=== PATIENT | female | born 1945 | race Caucasian/White ===

== ENCOUNTER 2021-01-27 13:52 | Emergency (ER) | payer MEDICARE, OTHER ==
--- NOTE | 2021-01-27 15:27 | EDM.PDOC ---
ED HPI GENERAL MEDICAL PROBLEM - General Chief Complaint: General Stated Complaint: MEDICAL Time Seen by Provider: 01/27/21 14:15 Source of Information: Reports: Patient, EMS History Limitations: Reports: No Limitations - History of Present Illness INITIAL COMMENTS - FREE TEXT/NARRATIVE: 75-year-old female who was just discharged from [facility] yesterday with COPD exacerbation and hypoxia was found to have a small PE and some electrolyte abnormalities. It was felt compounded by her smoking and persistent alcohol intake. She was discharged angry because she felt like they "didn't do anything". Today her leg gave out which she has done many times in the past, so she called the ambulance and wanted something done. Vitals were stable in route. Onset: Unknown/Unsure Duration: Chronic (All her symptoms are chronic) Location: Reports: Other (Her main concern is intermittent weakness of the right leg) Associated Symptoms: Reports: Malaise, Shortness of Breath, Weakness. Denies: Confusion, Chest Pain, Cough, Fever/Chills, Headaches - Related Data Allergies Allergy/AdvReac Type Severity Reaction Status Date / Time No Known Allergies Allergy Verified 01/27/21 13:57 Home Meds: Home Meds Apixaban [Eliquis] 10 mg PO BID 01/27/21 [History] Aspirin [Ecotrin EC] 81 mg PO DAILY 01/27/21 [History] Furosemide 20 mg PO DAILY 01/27/21 [History] Magnesium Oxide 400 mg PO DAILY 01/27/21 [History] Multivitamin 1 tab PO DAILY 01/27/21 [History] Omeprazole 40 mg PO DAILY 01/27/21 [History] Spironolactone [Aldactone] 25 mg PO DAILY 01/27/21 [History] Sucralfate [Carafate] 1 gm PO BID 01/27/21 [History] Past Medical History HEENT History: Reports: Cataract, Impaired Vision Cardiovascular History: Reports: Afib, Heart Failure, Other (See Below) Other Cardiovascular History: afib with RVR Respiratory History: Reports: COPD, PE, SOB 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: Reports: 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: Musculoskeletal History: Reports: Back Pain, Chronic, Other (See Below) Other Musculoskeletal History: shoulder pain chronic Other Neuro History: michelet bradley Psychiatric History: Reports: Addiction - Past Surgical History HEENT Surgical History: Reports: LASIK, Tonsillectomy Other Cardiovascular Surgeries/Procedures: hypokalemia, Hypomagnesium Female Surgical History: Reports: Tubal Ligation Social & Family History - Tobacco Use Tobacco Use Status *Q: Current Every Day Tobacco User Years of Tobacco use: 63 Packs/Tins Daily: 1 - Caffeine Use Caffeine Use: Reports: Coffee - Alcohol Use Days Per Week of Alcohol Use: 7 Number of Drinks Per Day: 3 Total Drinks Per Week: 21 - Recreational Drug Use Recreational Drug Use: No Other Recreational Drug Type: uses cbd oil ED ROS GENERAL - Review of Systems Review Of Systems: See Below Constitutional: Reports: Malaise. Denies: Fever, Chills HEENT: Denies: Throat Pain, Vision Change Respiratory: Reports: Shortness of Breath (Chronic shortness of breath, improved since being in the hospital) Cardiovascular: Reports: Dyspnea on Exertion, Palpitations (Intermittent palpitations). Denies: Chest Pain GI/Abdominal: Reports: Other (Chronic mild diffuse abdominal discomfort) Musculoskeletal: Reports: Other (Significant upper back and right shoulder pain, lower back pain intermittent, lower extremity pains and cramps) Skin: Reports: Bruising (Significant bruising on both her arms from recent IV starts and lab draws) Neurological: Reports: Difficulty Walking (Right leg gives out), Weakness Psychiatric: Reports: No Symptoms ED EXAM, GENERAL - Physical Exam Exam: See Below Exam Limited By: No Limitations General Appearance: Alert, No Apparent Distress Eye Exam: Bilateral Eye: Normal Inspection (No jaundice) Head: Atraumatic Neck: Supple, Non-Tender Respiratory/Chest: Lungs Clear (Lungs are clear but breath sounds are markedly decreased diffusely) Cardiovascular: Systolic Murmur (2/6 systolic ejection murmur), Irregularly Irregular GI/Abdominal: Normal Bowel Sounds, Soft, Tender (Reacts with some discomfort to palpation across the lower abdomen, no focal rebound or guarding) Extremities: Other (1+ symmetric ankle edema is present) Neurological: Alert, Oriented, Other (Cannot hold either leg up against gravity, her effort however is questionable) Skin Exam: Warm, Dry, Other (Significant bruising of both upper extremities) Course - Vital Signs Last Recorded V/S: Last Vital Signs Temp 97.5 F 01/27/21 14:03 Pulse 74 01/27/21 15:06 Resp 20 01/27/21 14:03 BP 113/62 01/27/21 15:06 Pulse Ox 95 01/27/21 15:06 - Orders/Labs/Meds Labs: Laboratory Tests 01/27/21 01/27/21 01/27/21 Range/Units 15:06 15:06 15:06 WBC 6.9 (4.5-11.0) K/uL RBC 3.43 (3.30-5.50) M/uL Hgb 13.8 (12.0-15.0) g/dL Hct 39.3 (36.0-48.0) % MCV 115 H (80-98) fL MCH 40 H (27-31) pg MCHC 35 (32-36) % Plt Count 258 (150-400) K/uL Neut % (Auto) 74 H (36-66) % Lymph % (Auto) 12 L (24-44) % [place] % (Auto) 12 H (2-6) % Eos % (Auto) 0 L (2-4) % Baso % (Auto) 2 H (0-1) % Sodium 141 (140-148) mmol/L Potassium 6.1 H* (3.6-5.2) mmol/L Chloride 103 (100-108) mmol/L Carbon Dioxide 29 (21-32) mmol/L Anion Gap 15.1 H (5.0-14.0) mmol/L BUN 11 (7-18) mg/dL Creatinine 0.6 (0.6-1.0) mg/dL Est Cr Clr Drug Dosing 69.96 mL/min Estimated GFR (MDRD) > 60 (>60) Glucose 104 (74-106) mg/dL Calcium 8.9 (8.5-10.1) mg/dL Ethyl Alcohol < 3 mg/dL - Re-Assessments/Exams Free Text/Narrative Re-Assessment/Exam: 01/27/21 15:26 Records were obtained from [place], and despite the patient claiming that they did nothing for her, an extensive work-up was done, COPD was stabilized, electrolyte abnormalities stabilized, and she was started on anticoagulation for a diagnosed PE. When she got home she started smoking again, possibly started drinking again. CBC, BMP and EtOH were obtained. Patient was stable. 01/27/21 16:51 EtOH was 0, vitals remained stable potassium came back 6.1 but is likely hemolyzed because it was normal yesterday and they had difficulty getting her blood from her bruised arms. Cardiac monitoring is normal. After labs returned, patient did not want to be placed back in the hospital and when I went through all her chronic illnesses and reasons for intermittent leg weakness as well as her intermittent hypoxia, COPD, and recent hospitalization she just wanted to change doctors. We got her an appointment next week in [place] with an essential physician and her potassium can be rechecked at that time. It is very important that she take her medications as prescribed including her anticoagulant. Departure - Departure Time of Disposition: 16:48 Disposition: Home, Self-Care 01 Clinical Impression: Weakness, Hyperkalemia COPD (chronic obstructive pulmonary disease) Qualifiers: COPD type: unspecified COPD Qualified Code(s): J44.9 - Chronic obstructive pulmonary disease, unspecified - Discharge Information Instructions: Chronic Obstructive Pulmonary Disease Exacerbation, [id number] Referrals: PCP,None [Primary Care Provider] - 02/03/21 2:00 pm (Dr Sharp TuesdayFebruary 03 at 2pm at the [facility] in [place]. ) Forms: ED Department Discharge Care Plan Goals: Is very important that you take your medications as prescribed, try to avoid smoking if possible and avoid alcohol. Increase activity as tolerated and recheck later this week if symptoms are persisting or you develop other concerns. Sepsis Event Note (ED) - Evaluation Sepsis Screening Result: No Definite Risk
== END 2021-01-27 17:22 | disposition home or self-care (01) ==
LOC: JP.ED 13:52
DX: J44.9 Chronic obstructive pulmonary disease, unspecified (principal); E87.5 Hyperkalemia; I48.91 Unspecified atrial fibrillation; I50.9 Heart failure, unspecified; K21.9 Gastro-esophageal reflux disease without esophagitis; Z72.0 Tobacco use; Z79.01 Long term (current) use of anticoagulants; Z79.82 Long term (current) use of aspirin; Z86.711 Personal history of pulmonary embolism
CPT/HCPCS: 36415; 80048; 80307; 85025; 99285

== ENCOUNTER 2021-01-31 11:24 | Emergency (ER) | payer MEDICARE, OTHER ==
[2021-01-31] MEDS ORDERED: Bacitracin Oint 1 GM U/D Packet TOP ONE (11:35)
--- NOTE | 2021-01-31 11:42 | EDM.PDOC ---
ED HPI GENERAL MEDICAL PROBLEM - General Chief Complaint: Laceration Stated Complaint: MEDICAL Time Seen by Provider: 01/31/21 11:25 Source of Information: Reports: Patient, EMS, Old Records History Limitations: Reports: No Limitations - History of Present Illness INITIAL COMMENTS - FREE TEXT/NARRATIVE: 75 yo female fell at home incurring some skin tears to her L forearm. She is on Eliquis. She didn't hit her head. 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 Denies any persisting dizziness. No nausea or vomiting. Does not believe that she has medications for vertigo at home. Says she is UTD on her tetanus. 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(s), Other (see below) (none) - Related Data Allergies Allergy/AdvReac Type Severity Reaction Status Date / Time No Known Allergies Allergy Verified 01/31/21 11:31 Home Meds: Home Meds Apixaban [Eliquis] 5 mg PO BID 01/27/21 [History] Aspirin [Ecotrin EC] 81 mg PO DAILY 01/27/21 [History] Furosemide 20 mg PO DAILY 01/27/21 [History] Magnesium Oxide 400 mg PO DAILY 01/27/21 [History] Omeprazole 40 mg PO DAILY 01/27/21 [History] Spironolactone [Aldactone] 25 mg PO DAILY 01/27/21 [History] Sucralfate [Carafate] 1 gm PO BID 01/27/21 [History] Past Medical History HEENT History: Reports: Cataract, Impaired Vision Cardiovascular History: Reports: Afib, Heart Failure, Other (See Below) Other Cardiovascular History: afib with RVR Respiratory History: Reports: COPD, PE, SOB 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: Reports: 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: Musculoskeletal History: Reports: Back Pain, Chronic, Other (See Below) Other Musculoskeletal History: shoulder pain chronic Other Neuro History: michelet bradley Psychiatric History: Reports: Addiction - Past Surgical History HEENT Surgical History: Reports: LASIK, Tonsillectomy Other Cardiovascular Surgeries/Procedures: hypokalemia, Hypomagnesium Female Surgical History: Reports: Tubal Ligation Social & Family History - Caffeine Use Caffeine Use: Reports: Coffee ED ROS GENERAL - Review of Systems Review Of Systems: See Below Constitutional: Reports: No Symptoms HEENT: Reports: No Symptoms Respiratory: Reports: Cough (chronic) Cardiovascular: Reports: No Symptoms GI/Abdominal: Reports: No Symptoms : Reports: No Symptoms Musculoskeletal: Reports: No Symptoms Skin: Reports: Bruising (diffusely, old), Wound (skin tears of L forearm/arm) Neurological: Reports: No Symptoms ED EXAM, SKIN/RASH Exam: See Below Exam Limited By: No Limitations General Appearance: Alert, WD/WN, No Apparent Distress Eye Exam: Bilateral Eye: Normal Inspection Ears: Normal External Exam, Normal Canal, Hearing Grossly Normal Nose: Normal Inspection, No Blood Throat/Mouth: Normal Inspection, Normal Lips, Normal Oropharynx, Normal Voice, No Airway Compromise Head: Atraumatic, Normocephalic Neck: Normal Inspection Cardiovascular: Regular Rate, Rhythm, No Edema GI/Abdominal: Normal Bowel Sounds, Soft, Non-Tender, No Distention Back Exam: Normal Inspection Extremities: Normal Inspection, Normal Range of Motion, Non-Tender, No Pedal Edema Neurological: Alert, Oriented, CN II-XII Intact, Normal Cognition, No Motor/Sensory Deficits Psychiatric: Normal Affect, Normal Mood Skin: Warm, Dry, No Rash, Ecchymosis (diffusely), Wound/Incision (skin tears) Location, Skin: Upper Extremity, Left Characteristics: No: Erythematous Associated features: Tenderness. No: Warmth, Induration, Lymphangitis Course - Vital Signs Last Recorded V/S: Last Vital Signs Temp 35.7 C L 01/31/21 11:39 Pulse 95 01/31/21 11:39 Resp 14 01/31/21 11:39 BP 108/61 01/31/21 11:39 Pulse Ox 96 01/31/21 11:39 Orthostatic Blood Pressure [ 119/68 Standing] Orthostatic Blood Pressure [ 128/77 Sitting] Orthostatic Blood Pressure [ 132/73 Supine] - Orders/Labs/Meds Orders: Active Orders 24 hr Category Date Time Status Cardiac Monitoring [RC] .As Directed Care 01/31/21 11:35 Active Orthostatic Vital Signs [RC] ASDIRECTED Care 01/31/21 11:35 Active Meds: Medications Discontinued Medications Generic Name Dose Route Start Last Admin Trade Name Luisa PRN Reason Stop Dose Admin Bacitracin 2 dose 01/31/21 11:35 01/31/21 12:28 Bacitracin Oint 1 Gm U/D Packet TOP 01/31/21 11:36 2 dose ONETIME ONE Administration - Re-Assessments/Exams Free Text/Narrative Re-Assessment/Exam: 01/31/21 12:33 Did OK ambulating with a walker here in the ER, her friend who is here for her says her performance with the walker if about normal for her. Departure - Departure Time of Disposition: 12:35 Disposition: Home, Self-Care 01 Condition: Fair Clinical Impression: Skin tear of left upper extremity, Fall in elderly patient - Discharge Information *PRESCRIPTION DRUG MONITORING PROGRAM REVIEWED*: Not Applicable *COPY OF PRESCRIPTION DRUG MONITORING REPORT IN PATIENT MALIKA: Not Applicable Instructions: Fall Prevention in the Home, Adult, [id number] Referrals: PCP,None [Primary Care Provider] - Forms: ED Department Discharge Additional Instructions: Continue your usual mediations. Use care when ambulating with your walker to prevent falls. Follow up with your provider in the clinic next week, call for an appointment. Sepsis Event Note (ED) - Focused Exam Vital Signs: Vital Signs Temp Pulse Resp BP Pulse Ox 01/31/21 11:39 35.7 C L 95 14 108/61 96 01/31/21 11:28 96 01/31/21 11:27 35.7 C L 95 14 108/61 85 L - My Orders Last 24 Hours: My Active Orders 01/31/21 11:35 Cardiac Monitoring [RC] .As Directed Orthostatic Vital Signs [RC] ASDIRECTED - Assessment/Plan Last 24 Hours: My Active Orders 01/31/21 11:35 Cardiac Monitoring [RC] .As Directed Orthostatic Vital Signs [RC] ASDIRECTED
== END 2021-01-31 12:47 | disposition home or self-care (01) ==
LOC: JP.ED 11:24
DX: S51.812A Laceration without foreign body of left forearm, initial encounter (principal); I50.9 Heart failure, unspecified; J44.9 Chronic obstructive pulmonary disease, unspecified; K21.9 Gastro-esophageal reflux disease without esophagitis; I48.91 Unspecified atrial fibrillation; Z79.899 Other long term (current) drug therapy; Z79.01 Long term (current) use of anticoagulants; Z86.711 Personal history of pulmonary embolism; W19.XXXA Unspecified fall, initial encounter; Y92.009 Unspecified place in unspecified non-institutional (private) residence as the place of occurrence of the external cause
CPT/HCPCS: 99282; 99283

== ENCOUNTER 2021-02-01 01:01 | Inpatient (IN) | payer MEDICARE, OTHER ==
--- NOTE | 2021-02-01 01:20 | EDM.PDOC ---
ED HPI GENERAL MEDICAL PROBLEM - General Chief Complaint: Lower Extremity Injury/Pain Stated Complaint: MEDICAL VIA [place] Time Seen by Provider: 02/01/21 01:10 Source of Information: Reports: Patient, EMS History Limitations: Reports: No Limitations - History of Present Illness INITIAL COMMENTS - FREE TEXT/NARRATIVE: 75-year-old female arrives via EMS with significant weakness, lower extremity edema and failure to thrive at home. This is her third ER visit in the last week, and this was after just being discharged from [facility] a week and a half ago. EMS has been to her place for lift assist a few times as well. Tonight she felt too weak to get across the house, sat at her kitchen table for 45 minutes checking her oxygen level and then called the ambulance. Right Knee Pain Score (Numeric/FACES): 8 - Related Data Allergies Allergy/AdvReac Type Severity Reaction Status Date / Time No Known Allergies Allergy Verified 02/01/21 01:21 Home Meds: Home Meds Apixaban [Eliquis] 5 mg PO BID 01/27/21 [History] Aspirin [Ecotrin EC] 81 mg PO DAILY 01/27/21 [History] Furosemide 20 mg PO DAILY 01/27/21 [History] Magnesium Oxide 400 mg PO DAILY 01/27/21 [History] Omeprazole 40 mg PO DAILY 01/27/21 [History] Spironolactone [Aldactone] 25 mg PO DAILY 01/27/21 [History] Sucralfate [Carafate] 1 gm PO BID 01/27/21 [History] Past Medical History HEENT History: Reports: Cataract, Impaired Vision Cardiovascular History: Reports: Afib, Heart Failure, Other (See Below) Other Cardiovascular History: afib with RVR Respiratory History: Reports: COPD, PE, SOB 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: Reports: GERD KAIAWHINA KOHANGA REO History: Reports: Musculoskeletal History: Reports: Back Pain, Chronic, Other (See Below) Other Musculoskeletal History: shoulder pain chronic Other Neuro History: guillian barre Psychiatric History: Reports: Addiction Hematologic History: Reports: Anticoagulation Therapy - Infectious Disease History Infectious Disease History: Reports: Chicken Pox, Measles, Mumps - Past Surgical History HEENT Surgical History: Reports: LASIK, Tonsillectomy Other Cardiovascular Surgeries/Procedures: hypokalemia, Hypomagnesium Female Surgical History: Reports: Tubal Ligation Neurological Surgical History: Reports: Lumbar Spine Social & Family History - Caffeine Use Caffeine Use: Reports: Coffee Review of Systems - Review of Systems Review Of Systems: See Below Constitutional: Denies: Fever Eyes: Denies: Vision Change Respiratory: Reports: Shortness of Breath (Chronic but seems to be worsening with activity) Cardiovascular: Denies: Chest Pain GI/Abdominal: Denies: Abdominal Pain Musculoskeletal: Reports: Other (Lower extremity weakness especially the right side, the left knee has been painful the last 2 days) Skin: Reports: Bruising (Significant bruising especially upper extremities) Neurological: Reports: Weakness ED EXAM, GENERAL - Physical Exam Exam: See Below Exam Limited By: No Limitations General Appearance: Alert, No Apparent Distress Eye Exam: Bilateral Eye: Normal Inspection Head: Atraumatic Neck: Non-Tender Respiratory/Chest: Other (Diffuse decreased breath sounds) Cardiovascular: Regular Rate, Rhythm GI/Abdominal: Soft Extremities: Other (Significant symmetric pitting edema bilaterally to the knees) Neurological: Alert, Oriented Psychiatric: Normal Affect, Normal Mood Course - Vital Signs Last Recorded V/S: Last Vital Signs Temp 96.7 F L 02/01/21 15:35 Pulse 96 02/01/21 15:35 Resp 16 02/01/21 15:35 BP 80/60 L 02/01/21 15:35 Pulse Ox 91 L 02/01/21 15:35 - Orders/Labs/Meds Orders: Medication Orders Acetaminophen (Acetaminophen 325 Mg Tab) 650 mg PO Q4H PRN PRN Reason: Pain (Mild 1-3)/fever Albuterol (Albuterol 0.083% 2.5 Mg/3 Ml Neb Soln) 2.5 mg NEB Q4H PRN PRN Reason: Shortness Of Breath/wheezing Albuterol/Ipratropium (Albuterol/Ipratropium 3.0-0.5 Mg/3 Ml Neb Soln) 3 ml NEB QIDRT [facility] Last Admin: 02/01/21 14:34 Dose: 3 ml Documented by: Admin: 02/01/21 10:43 Dose: 3 ml Documented by: AMARI Apixaban (Apixaban 5 Mg Tab) 5 mg PO BID [facility] Last Admin: 02/01/21 10:15 Dose: 5 mg Documented by: FESTUS Bisacodyl (Bisacodyl 5 Mg Tab) 5 mg PO DAILY PRN PRN Reason: Constipation Docusate Sodium (Docusate Sodium 100 Mg Cap) 100 mg PO BID PRN PRN Reason: Constipation Furosemide (Furosemide 20 Mg Tab) 20 mg PO DAILY [facility] Last Admin: 02/01/21 10:52 Dose: Not Given Documented by: FESTUS Lorazepam (Lorazepam 2 Mg/Ml Sdv) 1 mg IV Q6H PRN PRN Reason: Anxiety Magnesium Oxide (Magnesium Oxide 400 Mg Tab) 400 mg PO DAILY [facility] Last Admin: 02/01/21 10:16 Dose: 400 mg Documented by: FESTUS Morphine Sulfate (Morphine 2 Mg/Ml Syringe) 2 mg IVPUSH Q2H PRN PRN Reason: Pain (severe 7-10) Ondansetron HCl (Ondansetron 4 Mg Tab.Dis) 4 mg PO Q6H PRN PRN Reason: Nausea able to take PO Ondansetron HCl (Ondansetron 4 Mg/2 Ml Sdv) 4 mg IV Q4H PRN PRN Reason: Nausea/Vomiting Oxycodone HCl (Oxycodone 5 Mg Tab) 5 mg PO Q4H PRN PRN Reason: Pain (moderate 4-6) Last Admin: 02/01/21 16:50 Dose: 5 mg Documented by: Admin: 02/01/21 12:27 Dose: 5 mg Documented by: Admin: 02/01/21 06:16 Dose: 5 mg Documented by: MANOLO Pantoprazole Sodium (Pantoprazole 40 Mg Tab.Cr) 40 mg PO ACBREAKFAST [facility] Last Admin: 02/01/21 10:53 Dose: Not Given Documented by: Admin: 02/01/21 10:16 Dose: 40 mg Documented by: FESTUS Spironolactone (Spironolactone 25 Mg Tab) 25 mg PO DAILY [facility] Last Admin: 02/01/21 10:52 Dose: Not Given Documented by: FESTUS Sucralfate (Sucralfate 1 Gm Tab) 1 gm PO BID [facility] Last Admin: 02/01/21 10:15 Dose: 1 gm Documented by: FESTUS Labs: Laboratory Tests 02/01/21 02/01/21 Range/Units 02:13 02:13 WBC 9.1 (4.5-11.0) K/uL RBC 3.49 (3.30-5.50) M/uL Hgb 13.6 (12.0-15.0) g/dL Hct 39.4 (36.0-48.0) % MCV 113 H (80-98) fL MCH 39 H (27-31) pg MCHC 35 (32-36) % Plt Count 338 (150-400) K/uL Neut % (Auto) 69 H (36-66) % Lymph % (Auto) 16 L (24-44) % [place] % (Auto) 15 H (2-6) % Eos % (Auto) 1 L (2-4) % Baso % (Auto) 0 (0-1) % Sodium 142 (140-148) mmol/L Potassium 3.8 (3.6-5.2) mmol/L Chloride 97 L (100-108) mmol/L Carbon Dioxide 33 H (21-32) mmol/L Anion Gap 15.8 H (5.0-14.0) mmol/L BUN 14 (7-18) mg/dL Creatinine 0.7 (0.6-1.0) mg/dL Est Cr Clr Drug Dosing 60.40 mL/min Estimated GFR (MDRD) > 60 (>60) Glucose 90 (74-106) mg/dL Calcium 8.6 (8.5-10.1) mg/dL Total Bilirubin 0.5 (0.2-1.0) mg/dL AST 29 (15-37) U/L ALT 48 (12-78) U/L Alkaline Phosphatase 243 H (46-116) U/L Total Protein 6.2 L (6.4-8.2) g/dL Albumin 2.8 L (3.4-5.0) g/dL Globulin 3.4 (2.3-3.5) g/dL Albumin/Globulin Ratio 0.8 L (1.2-2.2) Meds: Medications Generic Name Dose Route Start Last Admin Trade Name Freq PRN Reason Stop Dose Admin Acetaminophen 650 mg 02/01/21 03:55 Acetaminophen 325 Mg Tab PO Q4H PRN Pain (Mild 1-3)/fever Albuterol 2.5 mg 02/01/21 03:55 Albuterol 0.083% 2.5 Mg/3 Ml Neb Soln NEB Q4H PRN Shortness Of Breath/wheezing Albuterol/Ipratropium 3 ml 02/01/21 11:00 02/01/21 14:34 Albuterol/Ipratropium 3.0-0.5 Mg/3 Ml Neb Soln NEB 3 ml QIDRT JOHNNY Administration Apixaban 5 mg 02/01/21 09:00 02/01/21 10:15 Apixaban 5 Mg Tab PO 5 mg BID JOHNNY Administration Bisacodyl 5 mg 02/01/21 03:55 Bisacodyl 5 Mg Tab PO DAILY PRN Constipation Docusate Sodium 100 mg 02/01/21 03:55 Docusate Sodium 100 Mg Cap PO BID PRN Constipation Furosemide 20 mg 02/01/21 09:00 02/01/21 10:52 Furosemide 20 Mg Tab PO Not Given DAILY JOHNNY Lorazepam 1 mg 02/01/21 03:55 Lorazepam 2 Mg/Ml Sdv IV Q6H PRN Anxiety Magnesium Oxide 400 mg 02/01/21 09:00 02/01/21 10:16 Magnesium Oxide 400 Mg Tab PO 400 mg DAILY JOHNNY Administration Morphine Sulfate 2 mg 02/01/21 03:55 Morphine 2 Mg/Ml Syringe IVPUSH Q2H PRN Pain (severe 7-10) Ondansetron HCl 4 mg 02/01/21 03:55 Ondansetron 4 Mg Tab.Dis PO Q6H PRN Nausea able to take PO Ondansetron HCl 4 mg 02/01/21 03:55 Ondansetron 4 Mg/2 Ml Sdv IV Q4H PRN Nausea/Vomiting Oxycodone HCl 5 mg 02/01/21 03:55 02/01/21 16:50 Oxycodone 5 Mg Tab PO 5 mg Q4H PRN Administration Pain (moderate 4-6) Pantoprazole Sodium 40 mg 02/01/21 11:30 02/01/21 10:53 Pantoprazole 40 Mg Tab.Cr PO Not Given ACBREAKFAST JOHNNY Spironolactone 25 mg 02/01/21 09:00 02/01/21 10:52 Spironolactone 25 Mg Tab PO Not Given DAILY JOHNNY Sucralfate 1 gm 02/01/21 09:00 02/01/21 10:15 Sucralfate 1 Gm Tab PO 1 gm BID JOHNNY Administration Discontinued Medications Generic Name Dose Route Start Last Admin Trade Name Freq PRN Reason Stop Dose Admin Albuterol/Ipratropium 3 ml 02/01/21 06:00 02/01/21 07:16 Albuterol/Ipratropium 3.0-0.5 Mg/3 Ml Neb Soln NEB 3 ml QID JOHNNY Administration Fentanyl 25 mcg 02/01/21 02:40 02/01/21 03:29 Fentanyl 100 Mcg/2 Ml Sdv IVPUSH 02/01/21 02:41 25 mcg ONETIME ONE Administration Sodium Chloride 1,000 mls @ 100 mls/hr 02/01/21 03:55 02/01/21 14:27 Normal Saline IV 100 mls/hr ASDIRECTED JOHNNY Administration Ceftriaxone Sodium 1 gm/ 50 mls @ 100 mls/hr 02/01/21 04:00 02/01/21 04:41 Sodium Chloride IV 100 mls/hr Q24H JOHNNY Administration Sodium Chloride 500 mls @ 500 mls/hr 02/01/21 15:50 02/01/21 15:59 Normal Saline IV 02/01/21 16:49 500 mls/hr .BOLUS ONE Administration - Re-Assessments/Exams Free Text/Narrative Re-Assessment/Exam: 02/01/21 02:07 CBC and CMP were rechecked but this patient will be admitted for worsening weakness, failure to thrive. 02/01/21 17:21 Labs are generally reassuring, electrolytes are now basically normal. Alk phos is moderately elevated. Angela Mendenhall of the hospitalist service was consulted for admission for persistent weakness, left knee pain, frequent falls, COPD and inability to thrive at home. Departure - Departure Time of Disposition: 03:43 Disposition: Admitted As Inpatient 66 Clinical Impression: Weakness COPD (chronic obstructive pulmonary disease) Qualifiers: COPD type: unspecified COPD Qualified Code(s): J44.9 - Chronic obstructive pulmonary disease, unspecified Left knee pain Qualifiers: Chronicity: acute Qualified Code(s): M25.562 - Pain in left knee - Discharge Information
[2021-02-01] MEDS ORDERED: fentaNYL 100 MCG/2 ML SDV IVPUSH ONE (02:40)
--- NOTE | 2021-02-01 03:12 | PCM.HP.2 ---
H&P History of Present Illness - General Date of Service: 02/01/21 Source of Information: Patient, Provider, RN History Limitations: Reports: No Limitations - History of Present Illness Initial Comments - Free Text/Narative: History of Present Illness Chief complaint: weakness 75-year-old female arrives via EMS with significant weakness, lower extremity edema and failure to thrive at home. This is her third ER visit in the last week, and this was after just being discharged from [facility] a week and a half ago. EMS has been to her place for lift assist a few times as well. Tonight she felt too weak to get across the house, sat at her kitchen table for 45 minutes checking her oxygen level and then called the ambulance Onset of Symptoms: Reports: Today, Gradual (decline in health) Symptom Onset Date: 02/01/21 Duration of Symptoms: Reports: Other (weakness, pain in left leg) Location: Reports: Lower Extremity, Left, Generalized (weakness) Quality: Reports: Ache, Stabbing Severity: Moderate (rates pain at 8) Improves with: Reports: Rest Worsens with: Reports: Movement Associated Symptoms: Reports: Weakness - Related Data Allergies/Adverse Reactions: Allergies Allergy/AdvReac Type Severity Reaction Status Date / Time No Known Allergies Allergy Verified 02/01/21 01:21 Home Medications: Home Meds Apixaban [Eliquis] 5 mg PO BID 01/27/21 [History] Aspirin [Ecotrin EC] 81 mg PO DAILY 01/27/21 [History] Furosemide 20 mg PO DAILY 01/27/21 [History] Magnesium Oxide 400 mg PO DAILY 01/27/21 [History] Omeprazole 40 mg PO DAILY 01/27/21 [History] Spironolactone [Aldactone] 25 mg PO DAILY 01/27/21 [History] Sucralfate [Carafate] 1 gm PO BID 01/27/21 [History] Past Medical History HEENT History: Reports: Cataract, Impaired Vision Cardiovascular History: Reports: Afib, Heart Failure, Other (See Below) Other Cardiovascular History: afib with RVR Respiratory History: Reports: COPD, PE, SOB 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: Reports: GERD Genitourinary History: Reports: None COURT ASSISTANT History: Reports: Musculoskeletal History: Reports: Back Pain, Chronic, Other (See Below) Other Musculoskeletal History: shoulder pain chronic Neurological History: Reports: Other (See Below) Other Neuro History: guillian barre Psychiatric History: Reports: Addiction Hematologic History: Reports: Anticoagulation Therapy - Infectious Disease History Infectious Disease History: Reports: Chicken Pox, Measles, Mumps - Past Surgical History HEENT Surgical History: Reports: LASIK, Tonsillectomy Cardiovascular Surgical History: Reports: Other (See Below) Other Cardiovascular Surgeries/Procedures: hypokalemia, Hypomagnesium Female Surgical History: Reports: Tubal Ligation Neurological Surgical History: Reports: Lumbar Spine Social & Family History - Tobacco Use Tobacco Use Status *Q: Current Every Day Tobacco User Years of Tobacco use: 58 Packs/Tins Daily: 0.7 - Caffeine Use Caffeine Use: Reports: Coffee - Alcohol Use Days Per Week of Alcohol Use: 7 Number of Drinks Per Day: 2 Total Drinks Per Week: 14 - Recreational Drug Use Recreational Drug Use: No - Living Situation & Occupation Living situation: Reports: , Alone, Other ([address] in [facility] has 4 children.) Occupation: Retired H&P Review of Systems - Review of Systems: Review Of Systems: See Below General: Reports: Weakness, Fatigue HEENT: Reports: No Symptoms Pulmonary: Reports: Shortness of Breath (chronic COPD, smokes 3/4 pack of cigarettes per day. home oxygen at 2 l per NC), Cough (chronic from COPD), Other (PE diagnosed at [facility] admission 01-24 to 01/26/2021- treated with Eliquis 5 mg bid) Cardiovascular: Reports: Dyspnea on Exertion (due to COPD), Edema (bilateral lower legs- chronic) Gastrointestinal: Reports: No Symptoms Genitourinary: Reports: No Symptoms Musculoskeletal: Reports: Leg Pain (left) Skin: Reports: Bruising (bilateral forearm), Erythema (left foot), Other (multi skin tears and bruising of the forearms.) Psychiatric: Reports: No Symptoms Neurological: Reports: Weakness Hematologic/Lymphatic: Reports: Easy Bleeding (Eliquis for PE) Immunologic: Reports: No Symptoms Exam - Exam Exam: See Below - Vital Signs Vital Signs: Last Vital Signs Temp 96 F L 02/01/21 01:22 Pulse 92 02/01/21 01:22 Resp 18 02/01/21 01:22 BP 107/71 02/01/21 01:22 Pulse Ox 98 02/01/21 01:22 Weight: 133 lb 13.129 oz - Exam Quality Assessment: Supplemental Oxygen, DVT Prophylaxis, Skin Breakdown General: Alert, Oriented, Cooperative, Moderate Distress, Other (neat and well groomed, fragile appearing adult) HEENT: PERRLA, Hearing Intact, Mucosa Moist & [place], Nares Patent, Normal Nasal Septum, Posterior Pharynx Clear, Conjunctiva Clear, EOMI, EACs Clear, TMs Clear Neck: Supple, Trachea Midline, 2 Lungs: Clear to Auscultation, Normal Respiratory Effort, Decreased Breath Sounds Cardiovascular: Regular Rate, Regular Rhythm, Normal S1, Normal S2 GI/Abdominal Exam: Normal Bowel Sounds, Soft, Non-Tender (Female) Exam: Deferred Rectal (Female) Exam: Deferred Back Exam: Normal Inspection, Full Range of Motion Extremities: Pedal Edema (2+), Arm Pain (bilateral bruising, skin tears.), Leg Pain (left knee pain with edema or erythema), Increased Warmth (left foot), Redness (left foot) Skin: Ecchymosis, Wound (bilateral forearms) Neurological: Reflexes Equal Bilateral, Strength Equal Bilateral Neuro Extensive - Mental Status: Alert, Oriented x3, Normal Mood/Affect, Normal Cognition Neuro Extensive - Motor, Sensory, Reflexes: CN II-XII Intact, Normal Gait, Normal Reflexes Psychiatric: Alert, Normal Affect, Normal Mood - Patient Data Lab Results Last 24 hrs: Laboratory Results - last 24 hr 02/01/21 02/01/21 Range/Units 02:13 02:13 WBC 9.1 (4.5-11.0) K/uL RBC 3.49 (3.30-5.50) M/uL Hgb 13.6 (12.0-15.0) g/dL Hct 39.4 (36.0-48.0) % MCV 113 H (80-98) fL MCH 39 H (27-31) pg MCHC 35 (32-36) % Plt Count 338 (150-400) K/uL Neut % (Auto) 69 H (36-66) % Lymph % (Auto) 16 L (24-44) % [place] % (Auto) 15 H (2-6) % Eos % (Auto) 1 L (2-4) % Baso % (Auto) 0 (0-1) % Sodium 142 (140-148) mmol/L Potassium 3.8 (3.6-5.2) mmol/L Chloride 97 L (100-108) mmol/L Carbon Dioxide 33 H (21-32) mmol/L Anion Gap 15.8 H (5.0-14.0) mmol/L BUN 14 (7-18) mg/dL Creatinine 0.7 (0.6-1.0) mg/dL Est Cr Clr Drug Dosing 60.40 mL/min Estimated GFR (MDRD) > 60 (>60) Glucose 90 (74-106) mg/dL Calcium 8.6 (8.5-10.1) mg/dL Total Bilirubin 0.5 (0.2-1.0) mg/dL AST 29 (15-37) U/L ALT 48 (12-78) U/L Alkaline Phosphatase 243 H (46-116) U/L Total Protein 6.2 L (6.4-8.2) g/dL Albumin 2.8 L (3.4-5.0) g/dL Globulin 3.4 (2.3-3.5) g/dL Albumin/Globulin Ratio 0.8 L (1.2-2.2) Result Diagrams: 02/01/21 02:13 02/01/21 02:13 Sepsis Event Note - Evaluation Sepsis Screening Result: No Definite Risk - Focused Exam Vital Signs: Vital Signs Temp Pulse Resp BP Pulse Ox 02/01/21 01:22 96 F L 92 18 107/71 98 02/01/21 01:13 96 F L 92 18 107/71 98 - Problem List (1) Weakness SNOMED Code(s): 66394587 ICD Code: R53.1 - WEAKNESS Status: Acute Priority: High Current Visit: Yes (2) COPD (chronic obstructive pulmonary disease) SNOMED Code(s): 86638325 ICD Code: J44.9 - CHRONIC OBSTRUCTIVE PULMONARY DISEASE, UNSPECIFIED Status: Acute Priority: High Current Visit: Yes Qualifiers: COPD type: unspecified COPD Qualified Code(s): J44.9 - Chronic obstructive pulmonary disease, unspecified (3) Skin tear of left upper extremity SNOMED Code(s): 060720863, 853320317 ICD Code: S41.112A - LACERATION W/O FOREIGN BODY OF LEFT UPPER ARM, INIT ENCNTR Status: Acute Priority: Low Current Visit: Yes (4) Tobacco use disorder, continuous SNOMED Code(s): 762430883 ICD Code: F17.209 - NICOTINE DEPENDENCE, UNSP, W UNSP NICOTINE-INDUCED DISORDERS Status: Acute Priority: High Current Visit: Yes (5) History of pulmonary embolism SNOMED Code(s): 240815882 ICD Code: Z86.711 - PERSONAL HISTORY OF PULMONARY EMBOLISM Status: Acute Priority: High Current Visit: Yes Problem List Initiated/Reviewed/Updated: Yes Assessment/Plan Comment:: ASSESSMENT AND PLAN OF CARE- WEAKNESS, COPD WITH HOME OXYGEN, SKIN TEARS, TOBACCO USE Plan to hospital admission for further care and treatment. Patient agree with plan of care. WEAKNESS- Ritika reports was too weak to ambulate in her home and called ambulance. reports she doesn't feel she can be at home due to leg pain and weak ness. Currently has home services with [facility] and [employer]. declines Social Service consult -IV fluids -pain control -consider referral to home care COPD with home oxygen -IV Fluids for rehydration NS at 100 ml/hr -IV Antibiotic; Rocephin 1 gram IV every 24 hours -oxygen to keep sats greater than 95% -schedule Duo nebs every 6 hours, Albuterol nebs every 4 hours prn -Advise to notify nurses of any chest pain or other symptoms Skin tears -daily wound care Tobacco dependence -declines Nicotine patch or gum -not interest in quit smoking History of PE- diagnosed at [facility] admission 01/24 to 01/26/2021 -Eliquis 5 mg po bid Maintenance issues -Orders home meds: chronic medication -Nutrition: regular diet -Littlejohn catheter -not indicated at this time -DVT - Eliquis 5 mg po bid -PPI; IV Protonix 40mg daily CODE STATUS: DNR/DNI Admission status: Admit to [address] [place] [address] Admission justification. This patient will be admitted for inpatient services and is medically appropriate meeting medical necessity for inpatient admission as outlined in my documentation. I reasonably expect the patient will require inpatient services that span. Time over 2 midnights. I reasonably expect this patient to be discharged or transferred within 96 hours after admission to the critical access hospital. Disposition: home or assisted living Primary care provider- New Provider at [facility] Hospitalist: Dr. Hummel - Mortality Measure Prognosis:: Good - Mortality Measure Prognosis:: Good
[2021-02-01] MEDS ORDERED: Morphine 2 MG/ML SYRINGE IVPUSH PRN (03:55)
[2021-02-01] MEDS ORDERED: Albuterol 0.083% 2.5 MG/3 ML Neb Soln NEB PRN (03:55)
[2021-02-01] MEDS ORDERED: Ondansetron 4 MG/2 ML SDV IV PRN (03:55)
[2021-02-01] MEDS ORDERED: LORazepam 2 MG/ML SDV IV PRN (03:55)
[2021-02-01] MEDS ORDERED: Docusate Sodium 100 MG Cap PO PRN (03:55)
[2021-02-01] MEDS ORDERED: Ondansetron 4 MG Tab.DIS PO PRN (03:55)
[2021-02-01] MEDS ORDERED: Bisacodyl 5 MG Tab PO PRN (03:55)
[2021-02-01] MEDS ORDERED: cefTRIAXone 1 GM in Sodium Chloride 0.9% 50 ML IV SCH (04:00)
[2021-02-01] MEDS: Sodium Chloride 0.9% 1,000 ML IV SCH ×2 (04:41→14:27)
[2021-02-01] MEDS ORDERED: Albuterol/Ipratropium 3.0-0.5 MG/3 ML Neb Soln NEB SCH (06:00)
[2021-02-01] MEDS: oxyCODONE 5 MG Tab PO PRN ×4 (06:16→22:06)
[2021-02-01] MEDS ORDERED: Pantoprazole 40 MG Vial IVPUSH SCH (09:00)
[2021-02-01] MEDS: Spironolactone 25 MG Tab PO SCH ×2 (10:15→10:52)
[2021-02-01] MEDS: Sucralfate 1 GM Tab PO SCH ×2 (10:15→22:08)
[2021-02-01] MEDS: Apixaban 5 MG Tab PO SCH ×2 (10:15→22:08)
[2021-02-01] MEDS: Pantoprazole 40 MG Tab.CR PO SCH ×2 (10:16→10:53)
[2021-02-01] MEDS: Magnesium Oxide 400 MG Tab PO SCH (10:16)
[2021-02-01] MEDS: Albuterol/Ipratropium 3.0-0.5 MG/3 ML Neb Soln NEB SCH ×3 (10:43→22:10)
[2021-02-01] MEDS: Furosemide 20 MG Tab PO SCH (10:52)
--- NOTE | 2021-02-01 15:05 | PCM.PN ---
- General Info Date of Service: 02/01/21 Subjective Update: Ms. Le is a 75-year-old woman who was admitted through the emergency department last night because of progressive weakness. She recently was hospitalized at [facility] in [place] and was found to have a pulmonary embolism. She is currently on anticoagulation with apixaban. Since she is been home she has become progressively more weak and unsteady. She has known oxygen dependent COPD, but denies significant increase in her shortness of breath from baseline. - Review of Systems General: Reports: Weakness, Fatigue, Malaise. Denies: Fever, Chills Pulmonary: Reports: Shortness of Breath. Denies: Pleuritic Chest Pain, Cough, Sputum, Hemoptysis, Wheezing Cardiovascular: Reports: Dyspnea on Exertion. Denies: Chest Pain, Palpitations, Orthopnea, PND, Edema, Lightheadedness Gastrointestinal: Reports: No Symptoms Genitourinary: Reports: No Symptoms - Patient Data Vitals - Most Recent: Last Vital Signs Temp 96.5 F L 02/01/21 04:21 Pulse 91 02/01/21 07:41 Resp 16 02/01/21 07:41 BP 99/48 L 02/01/21 12:28 Pulse Ox 93 L 02/01/21 13:22 Orthostatic Blood Pressure [ 179/131 Standing] Orthostatic Blood Pressure [ 105/70 Sitting] Weight - Most Recent: 138 lb 3.677 oz I&O - Last 24 Hours: Intake & Output 02/01/21 02/01/21 02/01/21 06:59 14:59 22:59 Intake Total 240 Balance 240 Lab Results Last 24 Hours: Laboratory Results - last 24 hr 02/01/21 02/01/21 Range/Units 02:13 02:13 WBC 9.1 (4.5-11.0) K/uL RBC 3.49 (3.30-5.50) M/uL Hgb 13.6 (12.0-15.0) g/dL Hct 39.4 (36.0-48.0) % MCV 113 H (80-98) fL MCH 39 H (27-31) pg MCHC 35 (32-36) % Plt Count 338 (150-400) K/uL Neut % (Auto) 69 H (36-66) % Lymph % (Auto) 16 L (24-44) % [place] % (Auto) 15 H (2-6) % Eos % (Auto) 1 L (2-4) % Baso % (Auto) 0 (0-1) % Sodium 142 (140-148) mmol/L Potassium 3.8 (3.6-5.2) mmol/L Chloride 97 L (100-108) mmol/L Carbon Dioxide 33 H (21-32) mmol/L Anion Gap 15.8 H (5.0-14.0) mmol/L BUN 14 (7-18) mg/dL Creatinine 0.7 (0.6-1.0) mg/dL Est Cr Clr Drug Dosing 60.40 mL/min Estimated GFR (MDRD) > 60 (>60) Glucose 90 (74-106) mg/dL Calcium 8.6 (8.5-10.1) mg/dL Total Bilirubin 0.5 (0.2-1.0) mg/dL AST 29 (15-37) U/L ALT 48 (12-78) U/L Alkaline Phosphatase 243 H (46-116) U/L Total Protein 6.2 L (6.4-8.2) g/dL Albumin 2.8 L (3.4-5.0) g/dL Globulin 3.4 (2.3-3.5) g/dL Albumin/Globulin Ratio 0.8 L (1.2-2.2) Med Orders - Current: Current Medications Acetaminophen (Acetaminophen 325 Mg Tab) 650 mg PO Q4H PRN PRN Reason: Pain (Mild 1-3)/fever Albuterol (Albuterol 0.083% 2.5 Mg/3 Ml Neb Soln) 2.5 mg NEB Q4H PRN PRN Reason: Shortness Of Breath/wheezing Albuterol/Ipratropium (Albuterol/Ipratropium 3.0-0.5 Mg/3 Ml Neb Soln) 3 ml NEB QIDRT [facility] Last Admin: 02/01/21 14:34 Dose: 3 ml Documented by: Apixaban (Apixaban 5 Mg Tab) 5 mg PO BID [facility] Last Admin: 02/01/21 10:15 Dose: 5 mg Documented by: Bisacodyl (Bisacodyl 5 Mg Tab) 5 mg PO DAILY PRN PRN Reason: Constipation Docusate Sodium (Docusate Sodium 100 Mg Cap) 100 mg PO BID PRN PRN Reason: Constipation Furosemide (Furosemide 20 Mg Tab) 20 mg PO DAILY [facility] Last Admin: 02/01/21 10:52 Dose: Not Given Documented by: Lorazepam (Lorazepam 2 Mg/Ml Sdv) 1 mg IV Q6H PRN PRN Reason: Anxiety Magnesium Oxide (Magnesium Oxide 400 Mg Tab) 400 mg PO DAILY [facility] Last Admin: 02/01/21 10:16 Dose: 400 mg Documented by: Morphine Sulfate (Morphine 2 Mg/Ml Syringe) 2 mg IVPUSH Q2H PRN PRN Reason: Pain (severe 7-10) Ondansetron HCl (Ondansetron 4 Mg Tab.Dis) 4 mg PO Q6H PRN PRN Reason: Nausea able to take PO Ondansetron HCl (Ondansetron 4 Mg/2 Ml Sdv) 4 mg IV Q4H PRN PRN Reason: Nausea/Vomiting Oxycodone HCl (Oxycodone 5 Mg Tab) 5 mg PO Q4H PRN PRN Reason: Pain (moderate 4-6) Last Admin: 02/01/21 12:27 Dose: 5 mg Documented by: Pantoprazole Sodium (Pantoprazole 40 Mg Tab.Cr) 40 mg PO ACBREAKFAST [facility] Last Admin: 02/01/21 10:53 Dose: Not Given Documented by: Spironolactone (Spironolactone 25 Mg Tab) 25 mg PO DAILY [facility] Last Admin: 02/01/21 10:52 Dose: Not Given Documented by: Sucralfate (Sucralfate 1 Gm Tab) 1 gm PO BID [facility] Last Admin: 02/01/21 10:15 Dose: 1 gm Documented by: Discontinued Medications Albuterol/Ipratropium (Albuterol/Ipratropium 3.0-0.5 Mg/3 Ml Neb Soln) 3 ml NEB QID [facility] Last Admin: 02/01/21 07:16 Dose: 3 ml Documented by: Fentanyl (Fentanyl 100 Mcg/2 Ml Sdv) 25 mcg IVPUSH ONETIME ONE Stop: 02/01/21 02:41 Last Admin: 02/01/21 03:29 Dose: 25 mcg Documented by: Sodium Chloride (Normal Saline) 1,000 mls @ 100 mls/hr IV ASDIRECTED [facility] Last Admin: 02/01/21 14:27 Dose: 100 mls/hr Documented by: Ceftriaxone Sodium 1 gm/ (Sodium Chloride) 50 mls @ 100 mls/hr IV Q24H [facility] Last Admin: 02/01/21 04:41 Dose: 100 mls/hr Documented by: - Exam Quality Assessment: Supplemental Oxygen, DVT Prophylaxis General: Alert, Oriented, Cooperative, Mild Distress Lungs: Clear to Auscultation, Normal Respiratory Effort, Decreased Breath Sounds Cardiovascular: Regular Rate, Regular Rhythm, No Murmurs GI/Abdominal Exam: Soft, Non-Tender, No Organomegaly, No Distention Extremities: Non-Tender, No Pedal Edema - Patient Data Lab Results Last 24 hrs: Laboratory Results - last 24 hr 02/01/21 02/01/21 Range/Units 02:13 02:13 WBC 9.1 (4.5-11.0) K/uL RBC 3.49 (3.30-5.50) M/uL Hgb 13.6 (12.0-15.0) g/dL Hct 39.4 (36.0-48.0) % MCV 113 H (80-98) fL MCH 39 H (27-31) pg MCHC 35 (32-36) % Plt Count 338 (150-400) K/uL Neut % (Auto) 69 H (36-66) % Lymph % (Auto) 16 L (24-44) % [place] % (Auto) 15 H (2-6) % Eos % (Auto) 1 L (2-4) % Baso % (Auto) 0 (0-1) % Sodium 142 (140-148) mmol/L Potassium 3.8 (3.6-5.2) mmol/L Chloride 97 L (100-108) mmol/L Carbon Dioxide 33 H (21-32) mmol/L Anion Gap 15.8 H (5.0-14.0) mmol/L BUN 14 (7-18) mg/dL Creatinine 0.7 (0.6-1.0) mg/dL Est Cr Clr Drug Dosing 60.40 mL/min Estimated GFR (MDRD) > 60 (>60) Glucose 90 (74-106) mg/dL Calcium 8.6 (8.5-10.1) mg/dL Total Bilirubin 0.5 (0.2-1.0) mg/dL AST 29 (15-37) U/L ALT 48 (12-78) U/L Alkaline Phosphatase 243 H (46-116) U/L Total Protein 6.2 L (6.4-8.2) g/dL Albumin 2.8 L (3.4-5.0) g/dL Globulin 3.4 (2.3-3.5) g/dL Albumin/Globulin Ratio 0.8 L (1.2-2.2) Result Diagrams: 02/01/21 02:13 02/01/21 02:13 Sepsis Event Note - Evaluation Sepsis Screening Result: No Definite Risk - Focused Exam Vital Signs: Vital Signs Temp Pulse Resp BP BP Pulse Ox 02/01/21 13:22 93 L 02/01/21 12:28 99/48 L 02/01/21 10:24 80/66 L 02/01/21 07:56 99/58 L 02/01/21 07:42 78/42 L 02/01/21 07:41 91 16 84/53 L 92 L 02/01/21 05:13 88 L 02/01/21 04:21 96.5 F L 99 18 102/76 97 - Problem List Review Problem List Initiated/Reviewed/Updated: Yes - My Orders Last 24 Hours: My Active Orders 02/01/21 14:59 Convert IV to Saline Lock [OM.PC] Routine - Plan Plan:: ASSESSMENT AND PLAN OF CARE WEAKNESS- Ritika reports was too weak to ambulate in her home and called ambulance. reports she doesn't feel she can be at home due to leg pain and weakness. She is reluctant to consider longterm placement but recognizes that she has no other good options at this point. -Saline lock IV -pain control -Will require longterm placement because of weakness COPD with home oxygen -oxygen to keep sats greater than 95% -schedule Duo nebs every 6 hours, Albuterol nebs every 4 hours prn -Advise to notify nurses of any chest pain or other symptoms Skin tears -daily wound care Tobacco dependence -declines Nicotine patch or gum -not interest in quit smoking History of PE- diagnosed at [facility] admission 01/24 to 01/26/2021 -Eliquis 5 mg po bid Maintenance issues -Orders home meds: chronic medication -Nutrition: regular diet -Littlejohn catheter -not indicated at this time -DVT - Eliquis 5 mg po bid -PPI; IV Protonix 40mg daily CODE STATUS: DNR/DNI Admission status: Admit to [address] [place] [address] Admission justification. This patient will be admitted for inpatient services and is medically appropriate meeting medical necessity for inpatient admission as outlined in my documentation. I reasonably expect the patient will require inpatient services that span. Time over 2 midnights. I reasonably expect this patient to be discharged or transferred within 96 hours after admission to the [facility]. Disposition: home or assisted living Primary care provider- New Provider at [facility] Hospitalist: Dr. Hummel
[2021-02-01] MEDS ORDERED: Sodium Chloride 0.9% 500 ML IV ONE (15:50)
[2021-02-01] MEDS: Acetaminophen 325 MG Tab PO PRN (23:31)
[2021-02-02] MEDS: oxyCODONE 5 MG Tab PO PRN ×3 (03:57→14:58)
[2021-02-02] MEDS: Albuterol/Ipratropium 3.0-0.5 MG/3 ML Neb Soln NEB SCH ×4 (06:59→20:15)
[2021-02-02] MEDS: Spironolactone 25 MG Tab PO SCH (08:11)
[2021-02-02] MEDS: Pantoprazole 40 MG Tab.CR PO SCH (08:11)
[2021-02-02] MEDS: Magnesium Oxide 400 MG Tab PO SCH (08:11)
[2021-02-02] MEDS: Sucralfate 1 GM Tab PO SCH ×2 (08:11→20:12)
[2021-02-02] MEDS: Furosemide 20 MG Tab PO SCH (08:12)
[2021-02-02] MEDS: Apixaban 5 MG Tab PO SCH ×2 (08:12→20:12)
[2021-02-02] MEDS: Acetaminophen 325 MG Tab PO PRN ×3 (09:15→20:33)
--- NOTE | 2021-02-02 13:01 | PCM.PN ---
- General Info Date of Service: 02/02/21 Subjective Update: There were no acute events overnight. Patient has remained stable. She is complaining of pain in her left knee and this is much worse with any sort of weightbearing. Shortness of breath is at baseline. She has not had any fevers. She is using a [employer] steady for transfers. Functional Status: Reports: Pain Controlled, Tolerating Diet - Review of Systems General: Reports: Weakness Musculoskeletal: Reports: Joint Pain (left knee ) - Patient Data Vitals - Most Recent: Last Vital Signs Temp 35.4 C L 02/02/21 10:51 Pulse 96 02/02/21 10:51 Resp 18 02/02/21 10:51 BP 101/52 L 02/02/21 10:51 Pulse Ox 98 02/02/21 12:07 Orthostatic Blood Pressure [ 179/131 Standing] Orthostatic Blood Pressure [ 105/70 Sitting] Weight - Most Recent: 62.7 kg I&O - Last 24 Hours: Intake & Output 02/01/21 02/02/21 02/02/21 22:59 06:59 14:59 Intake Total 1500 250 Balance 1500 250 Med Orders - Current: Current Medications Acetaminophen (Acetaminophen 325 Mg Tab) 650 mg PO Q4H PRN PRN Reason: Pain (Mild 1-3)/fever Last Admin: 02/02/21 09:15 Dose: 650 mg Documented by: Albuterol (Albuterol 0.083% 2.5 Mg/3 Ml Neb Soln) 2.5 mg NEB Q4H PRN PRN Reason: Shortness Of Breath/wheezing Albuterol/Ipratropium (Albuterol/Ipratropium 3.0-0.5 Mg/3 Ml Neb Soln) 3 ml NEB QIDRT [facility] Last Admin: 02/02/21 10:32 Dose: 3 ml Documented by: Apixaban (Apixaban 5 Mg Tab) 5 mg PO BID [facility] Last Admin: 02/02/21 08:12 Dose: 5 mg Documented by: Bisacodyl (Bisacodyl 5 Mg Tab) 5 mg PO DAILY PRN PRN Reason: Constipation Docusate Sodium (Docusate Sodium 100 Mg Cap) 100 mg PO BID PRN PRN Reason: Constipation Furosemide (Furosemide 20 Mg Tab) 20 mg PO DAILY [facility] Last Admin: 02/02/21 08:12 Dose: 20 mg Documented by: Lorazepam (Lorazepam 2 Mg/Ml Sdv) 1 mg IV Q6H PRN PRN Reason: Anxiety Magnesium Oxide (Magnesium Oxide 400 Mg Tab) 400 mg PO DAILY [facility] Last Admin: 02/02/21 08:11 Dose: 400 mg Documented by: Morphine Sulfate (Morphine 2 Mg/Ml Syringe) 2 mg IVPUSH Q2H PRN PRN Reason: Pain (severe 7-10) Ondansetron HCl (Ondansetron 4 Mg Tab.Dis) 4 mg PO Q6H PRN PRN Reason: Nausea able to take PO Ondansetron HCl (Ondansetron 4 Mg/2 Ml Sdv) 4 mg IV Q4H PRN PRN Reason: Nausea/Vomiting Oxycodone HCl (Oxycodone 5 Mg Tab) 5 mg PO Q4H PRN PRN Reason: Pain (moderate 4-6) Last Admin: 02/02/21 09:14 Dose: 5 mg Documented by: Pantoprazole Sodium (Pantoprazole 40 Mg Tab.Cr) 40 mg PO ACBREAKFAST [facility] Last Admin: 02/02/21 08:11 Dose: 40 mg Documented by: Spironolactone (Spironolactone 25 Mg Tab) 25 mg PO DAILY [facility] Last Admin: 02/02/21 08:11 Dose: 25 mg Documented by: Sucralfate (Sucralfate 1 Gm Tab) 1 gm PO BID [facility] Last Admin: 02/02/21 08:11 Dose: 1 gm Documented by: Discontinued Medications Albuterol/Ipratropium (Albuterol/Ipratropium 3.0-0.5 Mg/3 Ml Neb Soln) 3 ml NEB QID [facility] Last Admin: 02/01/21 07:16 Dose: 3 ml Documented by: Fentanyl (Fentanyl 100 Mcg/2 Ml Sdv) 25 mcg IVPUSH ONETIME ONE Stop: 02/01/21 02:41 Last Admin: 02/01/21 03:29 Dose: 25 mcg Documented by: Sodium Chloride (Normal Saline) 1,000 mls @ 100 mls/hr IV ASDIRECTED [facility] Last Admin: 02/01/21 14:27 Dose: 100 mls/hr Documented by: Ceftriaxone Sodium 1 gm/ (Sodium Chloride) 50 mls @ 100 mls/hr IV Q24H [facility] Last Admin: 02/01/21 04:41 Dose: 100 mls/hr Documented by: Sodium Chloride (Normal Saline) 500 mls @ 500 mls/hr IV .BOLUS ONE Stop: 02/01/21 16:49 Last Admin: 02/01/21 15:59 Dose: 500 mls/hr Documented by: - Exam Quality Assessment: Supplemental Oxygen General: Alert, Oriented, Cooperative, No Acute Distress Lungs: Normal Respiratory Effort GI/Abdominal Exam: Soft, No Distention Extremities: No Pedal Edema, Increased Warmth (left knee). No: Joint Swelling Skin: Warm, Dry Psy/Mental Status: Alert, Normal Affect - Patient Data Result Diagrams: 02/01/21 02:13 02/02/21 13:18 Sepsis Event Note - Evaluation Sepsis Screening Result: No Definite Risk - Focused Exam Vital Signs: Vital Signs Temp Pulse Resp BP BP Pulse Ox 02/02/21 12:07 98 02/02/21 10:51 35.4 C L 96 18 101/52 L 96 02/02/21 10:32 87 02/02/21 07:39 96 02/02/21 07:00 35.8 C L 106 H 18 140/72 98 02/02/21 06:59 90 02/02/21 03:00 35.8 C L 84 16 138/74 98 02/02/21 01:02 95 - Problem List Review Problem List Initiated/Reviewed/Updated: Yes - My Orders Last 24 Hours: My Active Orders 02/02/21 12:58 BASIC METABOLIC PANEL,BMP [CHEM] Routine URIC ACID [CHEM] Routine 02/02/21 12:59 Knee 3V Lt [CR] Routine 02/02/21 13:00 Cardiac Monitoring Discontinue [RC] Click to Edit PT Evaluation and Treatment [CONS] Routine - Plan Plan:: ASSESSMENT AND PLAN OF CARE WEAKNESS-weak and deconditioned secondary to recent hospital stay and pulmonary embolism as well as her chronic medical conditions. -Saline lock IV -pain control -Physical therapy -Will require [facility] placement because of weakness COPD with home oxygen-stable with no increase in dyspnea. -oxygen to keep sats greater than 90% -schedule Duo nebs every 6 hours, Albuterol nebs every 4 hours prn Skin tears-no evidence for infection. -daily wound care Tobacco dependence -declines Nicotine patch or gum -not interested in quitting smoking History of PE- diagnosed at [facility] admission 01/24 to 01/26/2021 -Eliquis 5 mg po bid Maintenance issues -Nutrition: regular diet -DVT - Eliquis 5 mg po bid -GI- Protonix 40mg daily Disposition: Anticipate discharge to [facility] for subacute rehab Kd Garcia MD
--- NOTE | 2021-02-02 13:51 | CRLCR ---
Indication: Knee pain. Technique: Left knee 4 views. Comparison: None. Findings: No acute fracture or dislocation. The patella is normally aligned. Mild medial compartment narrowing. Spurring of the superior pole of the patella. Small knee joint effusion. Vascular calcifications. Soft tissues are unremarkable. Impression: 1. No acute findings. 2. Mild medial compartment narrowing. 3. Small knee joint effusion. Dictated by Ludy Centeno MD @ 02/02/2021 1:50:[address] Ludy Centeno @ Feb 02 2021 1:50PM
[2021-02-02] MEDS ORDERED: predniSONE 20 MG Tab PO ONE (15:00)
[2021-02-02] MEDS ORDERED: Nicotine 21 MG/24 Hr Patch TRDERM SCH (22:15)
[2021-02-03] MEDS: Albuterol/Ipratropium 3.0-0.5 MG/3 ML Neb Soln NEB SCH ×2 (07:12→10:49)
[2021-02-03] MEDS: Pantoprazole 40 MG Tab.CR PO SCH (07:53)
[2021-02-03] MEDS ORDERED: predniSONE 20 MG Tab PO SCH (08:00)
[2021-02-03] MEDS: Magnesium Oxide 400 MG Tab PO SCH (10:16)
[2021-02-03] MEDS: Furosemide 20 MG Tab PO SCH (10:16)
[2021-02-03] MEDS: Spironolactone 25 MG Tab PO SCH (10:16)
[2021-02-03] MEDS: Sucralfate 1 GM Tab PO SCH (10:16)
[2021-02-03] MEDS: Apixaban 5 MG Tab PO SCH (10:16)
--- NOTE | 2021-02-03 11:54 | PCM.DCSUM1 ---
Discharge Summary - Hospital Course Brief History: 75-year-old female with oxygen dependent COPD, tobacco dependence and recent diagnosis of pulmonary embolism who presented with progressive weakness, recurrent falls and inability to care for herself at home. She was admitted for management of generalized weakness, chronic respiratory failure. Diagnosis: Stroke: No - Discharge Data Discharge Date: 02/03/21 Discharge Disposition: DC/Tfer to SNF 03 Condition: Fair - Referral to Home Health Primary Care Physician: PCP None - Discharge Diagnosis/Problem(s) (1) Weakness SNOMED Code(s): 55014509 ICD Code: R53.1 - WEAKNESS Status: Acute Priority: High Current Visit: Yes (2) History of pulmonary embolism SNOMED Code(s): 723431669 ICD Code: Z86.711 - PERSONAL HISTORY OF PULMONARY EMBOLISM Status: Acute Priority: High Current Visit: Yes (3) COPD (chronic obstructive pulmonary disease) SNOMED Code(s): 23510012 ICD Code: J44.9 - CHRONIC OBSTRUCTIVE PULMONARY DISEASE, UNSPECIFIED Status: Chronic Priority: High Current Visit: Yes Qualifiers: COPD type: unspecified COPD Qualified Code(s): J44.9 - Chronic obstructive pulmonary disease, unspecified (4) Chronic respiratory failure with hypoxia, on home O2 therapy SNOMED Code(s): 932952908 ICD Code: J96.11 - CHRONIC RESPIRATORY FAILURE WITH HYPOXIA; Z99.81 - DEPENDENCE ON SUPPLEMENTAL OXYGEN Status: Chronic Current Visit: Yes (5) Tobacco use disorder, continuous SNOMED Code(s): 052411575 ICD Code: F17.209 - NICOTINE DEPENDENCE, UNSP, W UNSP NICOTINE-INDUCED DISORDERS Status: Chronic Priority: High Current Visit: Yes (6) Left knee pain SNOMED Code(s): 0139897629 ICD Code: M25.562 - PAIN IN LEFT KNEE Status: Acute Current Visit: Yes Qualifiers: Chronicity: acute Qualified Code(s): M25.562 - Pain in left knee - Patient Summary/Data Consults: Consultations 02/02/21 13:00 PT Evaluation and Treatment [CONS] Routine Please Evaluate and Treat. PT Reason for Consult: Strengthening This query below is only for informational purposes and is not editable. Admission Diagnosis/Problem: Weakness Hospital Course: Ritika presented to the emergency room by ambulance with generalized weakness and difficulty caring for herself at home. She had multiple recent falls and multiple recent calls to 911 for assistance. She had also recently been hospitalized at [facility] in [place] for management of pulmonary embolism. Work- up in the emergency room was fairly unremarkable other than some minor bumps and bruises. She was admitted to the hospital for management of generalized weakness and deconditioning along with inability to care for herself at home. There were no acute issues during the course of the hospital stay. She did have some left knee pain and swelling. Her uric acid level was normal. X-ray was unremarkable. Gout versus pseudogout versus arthritis were suspected and she was started on prednisone. She will be on this for a total of 5 days with 3 days coming after hospital discharge. She does chronically use oxygen at home and this has been stable. There is no evidence to support infection. Plan is for her to go to the residential for subacute rehab with the goal of returning to independent living as possible. - Patient Instructions Diet: Regular Diet as Tolerated Activity: As Tolerated Showering/Bathing: May Shower Other/Special Instructions: 1. You were in the hospital for management of generalized weakness which is likely multifactorial stemming from your chronic COPD as well as recent hospital stay for pulmonary embolism. At this time you are quite weak and I recommend a discharge from the hospital to a snf facility for subacute rehab. I would anticipate a 1 to 2 week stay at the transitional care unit to improve your strength and endurance with the goal of returning to independent living. 2. Referral to Physical and Occupational therapy for strengthening in the setting ofgeneralized weakness. 3. Code status - DNR/DNI - Discharge Plan *PRESCRIPTION DRUG MONITORING PROGRAM REVIEWED*: Not Applicable *COPY OF PRESCRIPTION DRUG MONITORING REPORT IN PATIENT MALIKA: Not Applicable Prescriptions/Med Rec: Albuterol/Ipratropium [Combivent Respimat] 4 gm IH QID #1 aer.w.adap Nicotine [Habitrol] 21 mg TRDERM DAILY #30 patch oxyCODONE 5 mg PO Q4H PRN #40 tablet PRN Reason: Pain predniSONE 20 mg PO WITHBREAKFAST #3 tablet Acetaminophen [Tylenol] 650 mg PO Q4H PRN #200 tablet PRN Reason: Pain (Mild 1-3)/fever Tobacco Cessation Medication: Prescription Given Home Medications: Home Meds Apixaban [Eliquis] 5 mg PO BID 01/27/21 [History] Aspirin [Ecotrin EC] 81 mg PO DAILY 01/27/21 [History] Furosemide 20 mg PO DAILY 01/27/21 [History] Magnesium Oxide 400 mg PO DAILY 01/27/21 [History] Omeprazole 40 mg PO DAILY 01/27/21 [History] Spironolactone [Aldactone] 25 mg PO DAILY 01/27/21 [History] Sucralfate [Carafate] 1 gm PO BID 01/27/21 [History] Acetaminophen [Tylenol] 650 mg PO Q4H PRN #200 tablet 02/03/21 [Rx] Albuterol/Ipratropium [Combivent Respimat] 4 gm IH QID #1 aer.w.adap 02/03/21 [Rx] Nicotine [Habitrol] 21 mg TRDERM DAILY #30 patch 02/03/21 [Rx] oxyCODONE 5 mg PO Q4H PRN #40 tablet 02/03/21 [Rx] predniSONE 20 mg PO WITHBREAKFAST #3 tablet 02/03/21 [Rx] Oxygen Therapy Mode: Nasal Cannula Oxygen Flow Rate (L/min): 2 Patient Handouts: Chronic Obstructive Pulmonary Disease, [id number], Steps to Quit Smoking Referrals: PCP,None [Primary Care Provider] - (f/u as needed after the hospital stay ) - Discharge Summary/Plan Comment DC Time >30 min.: Yes (40-new [place] discharge ) - Patient Data Vitals - Most Recent: Last Vital Signs Temp 36.1 C 02/03/21 10:33 Pulse 98 02/03/21 10:49 Resp 16 02/03/21 10:33 BP 103/58 L 02/03/21 10:33 Pulse Ox 98 02/03/21 10:33 Orthostatic Blood Pressure [ 179/131 Standing] Orthostatic Blood Pressure [ 105/70 Sitting] Weight - Most Recent: 62.7 kg I&O - Last 24 hours: Intake & Output 02/02/21 02/03/21 02/03/21 22:59 06:59 14:59 Intake Total 300 Balance 300 Lab Results - Last 24 hrs: Laboratory Results - last 24 hr 02/02/21 Range/Units 13:18 Sodium 142 (140-148) mmol/L Potassium 3.5 L (3.6-5.2) mmol/L Chloride 102 (100-108) mmol/L Carbon Dioxide 32 (21-32) mmol/L Anion Gap 11.5 (5.0-14.0) mmol/L BUN 12 (7-18) mg/dL Creatinine 0.7 (0.6-1.0) mg/dL Est Cr Clr Drug Dosing 60.40 mL/min Estimated GFR (MDRD) > 60 (>60) Glucose 122 H (74-106) mg/dL Uric Acid 6.0 (2.6-6.2) mg/dL Calcium 8.2 L (8.5-10.1) mg/dL Med Orders - Current: Current Medications Acetaminophen (Acetaminophen 325 Mg Tab) 650 mg PO Q4H PRN PRN Reason: Pain (Mild 1-3)/fever Last Admin: 02/02/21 20:33 Dose: 650 mg Documented by: Albuterol (Albuterol 0.083% 2.5 Mg/3 Ml Neb Soln) 2.5 mg NEB Q4H PRN PRN Reason: Shortness Of Breath/wheezing Albuterol/Ipratropium (Albuterol/Ipratropium 3.0-0.5 Mg/3 Ml Neb Soln) 3 ml NEB QIDRT [facility] Last Admin: 02/03/21 10:49 Dose: 3 ml Documented by: Apixaban (Apixaban 5 Mg Tab) 5 mg PO BID [facility] Last Admin: 02/03/21 10:16 Dose: 5 mg Documented by: Bisacodyl (Bisacodyl 5 Mg Tab) 5 mg PO DAILY PRN PRN Reason: Constipation Docusate Sodium (Docusate Sodium 100 Mg Cap) 100 mg PO BID PRN PRN Reason: Constipation Furosemide (Furosemide 20 Mg Tab) 20 mg PO DAILY [facility] Last Admin: 02/03/21 10:16 Dose: 20 mg Documented by: Lorazepam (Lorazepam 2 Mg/Ml Sdv) 1 mg IV Q6H PRN PRN Reason: Anxiety Magnesium Oxide (Magnesium Oxide 400 Mg Tab) 400 mg PO DAILY [facility] Last Admin: 02/03/21 10:16 Dose: 400 mg Documented by: Morphine Sulfate (Morphine 2 Mg/Ml Syringe) 2 mg IVPUSH Q2H PRN PRN Reason: Pain (severe 7-10) Nicotine (Nicotine 21 Mg/24 Hr Patch) 21 mg TRDERM BEDTIME [facility] Ondansetron HCl (Ondansetron 4 Mg Tab.Dis) 4 mg PO Q6H PRN PRN Reason: Nausea able to take PO Ondansetron HCl (Ondansetron 4 Mg/2 Ml Sdv) 4 mg IV Q4H PRN PRN Reason: Nausea/Vomiting Oxycodone HCl (Oxycodone 5 Mg Tab) 5 mg PO Q4H PRN PRN Reason: Pain (moderate 4-6) Last Admin: 02/02/21 14:58 Dose: 5 mg Documented by: Pantoprazole Sodium (Pantoprazole 40 Mg Tab.Cr) 40 mg PO ACBREAKFAST [facility] Last Admin: 02/03/21 07:53 Dose: 40 mg Documented by: Prednisone (Prednisone 20 Mg Tab) 20 mg PO WITHBREAKFAST [facility] Stop: 02/06/21 08:01 Last Admin: 02/03/21 07:53 Dose: 20 mg Documented by: Spironolactone (Spironolactone 25 Mg Tab) 25 mg PO DAILY [facility] Last Admin: 02/03/21 10:16 Dose: 25 mg Documented by: Sucralfate (Sucralfate 1 Gm Tab) 1 gm PO BID [facility] Last Admin: 02/03/21 10:16 Dose: 1 gm Documented by: Discontinued Medications Albuterol/Ipratropium (Albuterol/Ipratropium 3.0-0.5 Mg/3 Ml Neb Soln) 3 ml NEB QID [facility] Last Admin: 02/01/21 07:16 Dose: 3 ml Documented by: Fentanyl (Fentanyl 100 Mcg/2 Ml Sdv) 25 mcg IVPUSH ONETIME ONE Stop: 02/01/21 02:41 Last Admin: 02/01/21 03:29 Dose: 25 mcg Documented by: Sodium Chloride (Normal Saline) 1,000 mls @ 100 mls/hr IV ASDIRECTED [facility] Last Admin: 02/01/21 14:27 Dose: 100 mls/hr Documented by: Ceftriaxone Sodium 1 gm/ (Sodium Chloride) 50 mls @ 100 mls/hr IV Q24H [facility] Last Admin: 02/01/21 04:41 Dose: 100 mls/hr Documented by: Sodium Chloride (Normal Saline) 500 mls @ 500 mls/hr IV .BOLUS ONE Stop: 02/01/21 16:49 Last Admin: 02/01/21 15:59 Dose: 500 mls/hr Documented by: Nicotine (Nicotine 21 Mg/24 Hr Patch) 21 mg TRDERM DAILY [facility] Last Admin: 02/02/21 22:14 Dose: 21 mg Documented by: Prednisone (Prednisone 20 Mg Tab) 20 mg PO ONETIME ONE Stop: 02/02/21 15:01 Last Admin: 02/02/21 16:30 Dose: 20 mg Documented by:
[2021-02-03 12:33] LABS: CORONAVIRUS COVID-19 NAA NEGATIVE (NEGATIVE)
[2021-02-03] MEDS ORDERED: Nicotine 21 MG/24 Hr Patch TRDERM SCH (21:00)
== END 2021-02-03 13:15 | DRG 948 ==
LOC: JP.ED 01:01 → JP.MS 03:28
PROVIDERS: ADMIT Hospitalist; ATTEND Internal Medicine
DX: R53.1 Weakness (principal); J96.11 Chronic respiratory failure with hypoxia; J44.9 Chronic obstructive pulmonary disease, unspecified; H54.7 Unspecified visual loss; F17.210 Nicotine dependence, cigarettes, uncomplicated; I50.9 Heart failure, unspecified; Z86.711 Personal history of pulmonary embolism; Z79.01 Long term (current) use of anticoagulants; G89.29 Other chronic pain; M54.9 Dorsalgia, unspecified; M25.519 Pain in unspecified shoulder; E83.42 Hypomagnesemia; G61.0 Guillain-Barre syndrome; Z99.81 Dependence on supplemental oxygen; Z79.82 Long term (current) use of aspirin; Z79.899 Other long term (current) drug therapy; M25.562 Pain in left knee; I48.91 Unspecified atrial fibrillation; K21.9 Gastro-esophageal reflux disease without esophagitis; Z90.89 Acquired absence of other organs; Z98.51 Tubal ligation status; Z66 Do not resuscitate; Z20.822 Contact with and (suspected) exposure to COVID-19; Z91.81 History of falling
CPT/HCPCS: 0241U; 36415; 73562; 80048; 80053; 84550; 85025; 94640; 94762; 97110; 97162; 97530; 96374; 99285; 99285-25; A9270-GY; J0696; J3010; J7030; J7040; J7512; J7620-GY

== ENCOUNTER 2021-06-10 21:33 | Inpatient (IN) | payer MEDICARE, OTHER ==
[2021-06-10] MEDS: Sodium Chloride 0.9% 10 ML Syringe FLUSH PRN (22:25)
--- NOTE | 2021-06-10 23:21 | EDM.PDOC ---
ED HPI GENERAL MEDICAL PROBLEM - General Chief Complaint: General Stated Complaint: MEDICAL [place] Time Seen by Provider: 06/10/21 21:55 Source of Information: Reports: Patient, EMS History Limitations: Reports: No Limitations - History of Present Illness INITIAL COMMENTS - FREE TEXT/NARRATIVE: Ritika is a 75-year-old female brought in by [facility] for evaluation of generalized weakness and increasing shortness of breath. Patient has a history significant for COPD and wears oxygen at night, but despite this she still smokes about a pack a day. For the last several days she has had increased weakness, decreased appetite, and is felt more shaky. She has been having difficulty getting out of bed. In addition to this her home health apparently did not come on Tuesday due to a family emergency. Patient try to get out of bed and did not have the strength and slid herself down to the floor. EMS was called and needed to assist her to be able to get onto the cart. They found her to be hypoxic and put her on her oxygen with an SPO2 of 80%. She arrived to the ED on oxygen via nasal cannula at 3 L/min with an SPO2 of 94%. Initially quite hypertensive this is normalized now. denies pain Pain Score (Numeric/FACES): 0 - Related Data Allergies Allergy/AdvReac Type Severity Reaction Status Date / Time No Known Allergies Allergy Verified 06/10/21 21:50 Home Meds: Home Meds Aspirin [Ecotrin EC] 81 mg PO DAILY 01/27/21 [History] Furosemide 20 mg PO DAILY 01/27/21 [History] Omeprazole 40 mg PO DAILY 01/27/21 [History] Sucralfate [Carafate] 1 gm PO BID 01/27/21 [History] Past Medical History HEENT History: Reports: Cataract, Impaired Vision Cardiovascular History: Reports: Afib, Heart Failure, Other (See Below) Other Cardiovascular History: afib with RVR Respiratory History: Reports: COPD, PE, SOB 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: Reports: GERD Genitourinary History: Reports: None [employer] History: Reports: Musculoskeletal History: Reports: Back Pain, Chronic, Other (See Below) Other Musculoskeletal History: shoulder pain chronic Neurological History: Reports: Other (See Below) Other Neuro History: guillian barre Psychiatric History: Reports: Addiction Hematologic History: Reports: Anticoagulation Therapy - Infectious Disease History Infectious Disease History: Reports: Chicken Pox, Measles, Mumps - Past Surgical History HEENT Surgical History: Reports: LASIK, Tonsillectomy Cardiovascular Surgical History: Reports: Other (See Below) Other Cardiovascular Surgeries/Procedures: hypokalemia, Hypomagnesium GI Surgical History: Reports: None Female Surgical History: Reports: Tubal Ligation Neurological Surgical History: Reports: Lumbar Spine Social & Family History - Tobacco Use Tobacco Use Status *Q: Current Every Day Tobacco User Years of Tobacco use: 50 Packs/Tins Daily: 0.5 - Caffeine Use Caffeine Use: Reports: Coffee - Recreational Drug Use Recreational Drug Use: No - Living Situation & Occupation Living situation: Reports: , Alone, Other ([address] in [place], [place]. has 4 children.) Occupation: Retired ED ROS GENERAL - Review of Systems Review Of Systems: See Below Constitutional: Reports: Weakness, Decreased Appetite HEENT: Reports: No Symptoms Respiratory: Reports: Shortness of Breath, Cough. Denies: Sputum Cardiovascular: Reports: No Symptoms Endocrine: Reports: No Symptoms GI/Abdominal: Reports: No Symptoms : Reports: No Symptoms Musculoskeletal: Reports: No Symptoms Skin: Reports: No Symptoms Neurological: Reports: Difficulty Walking, Weakness (Generalized weakness) Psychiatric: Reports: No Symptoms Hematologic/Lymphatic: Reports: No Symptoms Immunologic: Reports: No Symptoms ED EXAM, GENERAL - Physical Exam Exam: See Below Exam Limited By: No Limitations General Appearance: Alert, Anxious, Mild Distress Eye Exam: Bilateral Eye: EOMI, PERRL Throat/Mouth: Normal Inspection, Normal Oropharynx, Normal Voice, No Airway Compromise Head: Atraumatic, Normocephalic Neck: Normal Inspection, Supple, Non-Tender, Full Range of Motion Respiratory/Chest: No Respiratory Distress, No Accessory Muscle Use, Chest Non- Tender, Decreased Breath Sounds (Managed breath sounds in both bases), Wheezing (Scant expiratory wheezing) Cardiovascular: Normal Peripheral Pulses, Regular Rate, Rhythm, No Murmur Peripheral Pulses: 2+: Radial (L), Radial (R), Posterior Tibial (L), Posterior Tibial (R) GI/Abdominal: Normal Bowel Sounds, Soft, Non-Tender Extremities: Normal Inspection, Normal Range of Motion, No Pedal Edema Neurological: Alert, Oriented, Normal Cognition, No Motor/Sensory Deficits Psychiatric: Normal Affect, Normal Mood Skin Exam: Warm, Dry, Intact, Normal Color Course - Vital Signs Last Recorded V/S: Last Vital Signs Temp 36.2 C 06/10/21 21:54 Pulse 86 06/10/21 22:58 Resp 16 06/10/21 21:54 BP 94/56 L 06/10/21 22:58 Pulse Ox 95 06/10/21 22:04 - Orders/Labs/Meds Orders: Active Orders 24 hr Category Date Time Status Patient Status Manage Transfer [TRANSFER] Routine ADT 06/11/21 00:58 Active Chest 1V Frontal [CR] Stat Exams 06/10/21 22:13 Taken Sodium Chloride 0.9% [Saline Flush] Med 06/10/21 22:13 Active 10 ml FLUSH ASDIRECTED PRN Saline Lock Insert [OM.PC] Routine Oth 06/10/21 22:13 Ordered Resuscitation Status Routine Resus Stat 06/11/21 01:03 Ordered Medication Orders Sodium Chloride (Sodium Chloride 0.9% 10 Ml Syringe) 10 ml FLUSH ASDIRECTED PRN PRN Reason: Keep Vein Open Last Admin: 06/10/21 22:25 Dose: 10 ml Documented by: JESSICA Labs: Laboratory Tests 06/10/21 06/10/21 06/11/21 Range/Units 22:27 22:27 00:08 WBC 12.1 H (4.5-11.0) K/uL RBC 5.15 (3.30-5.50) M/uL Hgb 9.7 L D (12.0-15.0) g/dL Hct 33.7 L (36.0-48.0) % MCV 65 L (80-98) fL MCH 19 L (27-31) pg MCHC 29 L (32-36) % Plt Count 325 (150-400) K/uL Neut % (Auto) 79.7 H (36-66) % Lymph % (Auto) 6.8 L (24-44) % [place] % (Auto) 13.0 H (2-6) % Eos % (Auto) 0.1 L (2-4) % Baso % (Auto) 0.4 (0-1) % Sodium 140 (140-148) mmol/L Potassium 3.8 (3.6-5.2) mmol/L Chloride 99 L (100-108) mmol/L Carbon Dioxide 35 H (21-32) mmol/L Anion Gap 9.8 (5.0-14.0) mmol/L BUN 15 (7-18) mg/dL Creatinine 0.8 (0.6-1.0) mg/dL Est Cr Clr Drug Dosing 52.47 mL/min Estimated GFR (MDRD) > 60 (>60) Glucose 110 H (74-106) mg/dL Calcium 8.7 (8.5-10.1) mg/dL Total Bilirubin 1.4 H D (0.2-1.0) mg/dL AST 65 H D (15-37) U/L ALT 48 (12-78) U/L Alkaline Phosphatase 376 H (46-116) U/L Troponin I < 0.017 (0.000-0.056) ng/mL Total Protein 6.1 L (6.4-8.2) g/dL Albumin 2.9 L (3.4-5.0) g/dL Globulin 3.2 (2.3-3.5) g/dL Albumin/Globulin Ratio 0.9 L (1.2-2.2) SARS-CoV-2 RNA (MARLENE) Negative (NEGATIVE) Meds: Medications Generic Name Dose Route Start Last Admin Trade Name Freq PRN Reason Stop Dose Admin Sodium Chloride 10 ml 06/10/21 22:13 06/10/21 22:25 Sodium Chloride 0.9% 10 Ml Syringe FLUSH 10 ml ASDIRECTED PRN Administration Keep Vein Open - Radiology Interpretation Free Text/Narrative:: I reviewed the 1 view chest x-ray showing no acute infiltrates. There is significant cardiomegaly with right atrial and right ventricular enlargement and hyperinflation with flattening of the diaphragms. - Re-Assessments/Exams Free Text/Narrative Re-Assessment/Exam: 06/10/21 23:26 I reviewed the patient's labs showing a mild leukocytosis at 12.1 with a hemoglobin of 9 7, hematocrit 33.7, and a platelet count of 325,000. The comprehensive panel is negative with a sodium 140, potassium 3.8, chloride of 99, bicarbonate of 35, BUN of 15 with a creatinine of 0.8 and a glucose of 110. Total bili is mildly elevated 1.1. AST and ALT are both normal. Alk phos is elevated at 376. Troponin I is negative at <0.017. This appears to be a COPD exacerbation complicated by generalized weakness likely due to deconditioning. Currently the patient is not able to ambulate on her own which is why she was brought in by EMS. We will likely need to admit her here and have physical therapy and Occupational Therapy evaluate her in the morning to see if she would perhaps benefit from admission to a skilled care facility for a while for rehab. I will discuss this with Angela Mendenhall CNP to arrange for the admission which is likely going to be observation. 06/11/21 01:20 COVID-19 negative Departure - Departure Time of Disposition: 01:21 Disposition: Admitted As Inpatient 66 Clinical Impression: COPD exacerbation, Generalized weakness - Discharge Information Referrals: PCP,None [Primary Care Provider] - Forms: ED Department Discharge Sepsis Event Note (ED) - Evaluation Sepsis Screening Result: No Definite Risk - Focused Exam Vital Signs: Vital Signs Temp Pulse Resp BP Pulse Ox 06/10/21 22:58 86 94/56 L 06/10/21 22:04 87 94/50 L 95 06/10/21 21:54 36.2 C 87 16 84/60 L 95 06/10/21 21:38 90 L 06/10/21 21:37 36.2 C 113 H 16 85/58 L 80 L - Problem List & Annotations (1) Weakness SNOMED Code(s): 82228398 Code(s): R53.1 - WEAKNESS Status: Acute Priority: High Current Visit: Yes (2) COPD exacerbation SNOMED Code(s): 861450078 Code(s): J44.1 - CHRONIC OBSTRUCTIVE PULMONARY DISEASE W (ACUTE) EXACERBATION Status: Acute Priority: High Current Visit: Yes - Problem List Review Problem List Initiated/Reviewed/Updated: Yes - My Orders Last 24 Hours: My Active Orders 06/10/21 22:13 Chest 1V Frontal [CR] Stat Sodium Chloride 0.9% [Saline Flush] 10 ml FLUSH ASDIRECTED PRN Saline Lock Insert [OM.PC] Routine - Assessment/Plan Last 24 Hours: My Active Orders 06/10/21 22:13 Chest 1V Frontal [CR] Stat Sodium Chloride 0.9% [Saline Flush] 10 ml FLUSH ASDIRECTED PRN Saline Lock Insert [OM.PC] Routine
--- NOTE | 2021-06-11 01:17 | PCM.HP.2 ---
H&P History of Present Illness - General Date of Service: 06/10/21 Admit Problem/Dx: Admission Diagnosis/Problem Admission Diagnosis/Problem Chronic obstructive asthma with exacerbation Source of Information: Patient, Provider, RN History Limitations: Reports: No Limitations - History of Present Illness Initial Comments - Free Text/Narative: Chief complaint: weakness- Mrs. Le reports same symptoms as before. Copy from ER report Source of Information: Reports: Patient, EMS History Limitations: Reports: No Limitations - History of Present Illness INITIAL COMMENTS - FREE TEXT/NARRATIVE: Ritika is a 75-year-old female brought in by [facility] for evaluation of ge neralized weakness and increasing shortness of breath. Patient has a history significant for COPD and wears oxygen at night, but despite this she still smokes about a pack a day. For the last several days she has had increased weakness, decreased appetite, and is felt more shaky. She has been having difficulty getting out of bed. In addition to this her home health apparently did not come on Tuesday due to a family emergency. Patient try to get out of bed and did not have the strength and slid herself down to the floor. EMS was called and needed to assist her to be able to get onto the cart. They found her to be hypoxic and put her on her oxygen with an SPO2 of 80%. She arrived to the ED on oxygen via nasal cannula at 3 L/min with an SPO2 of 94%. Initially quite hypertensive this is normalized now Onset of Symptoms: Reports: Gradual Duration of Symptoms: Reports: Day(s):, Getting Worse (the past two days not eating due to weakness and lack of appetite) Location: Reports: Generalized Quality: Reports: Same as Previous Episode (last hospital admission January 2021) Severity: Severe Improves with: Reports: Rest Worsens with: Reports: Movement Context: Reports: Other (chronic disease and tobacco use) Associated Symptoms: Reports: Cough (jay to white phlem), Fever/Chills (chills without fever), Loss of Appetite (last meal two day ago- did eat a salad in ER without Nausea or Vomiting), Malaise, Nausea/Vomiting (nausea), Weakness (fell and unable to get up) denies pain Pain Score (Numeric/FACES): 0 - Related Data Allergies/Adverse Reactions: Allergies Allergy/AdvReac Type Severity Reaction Status Date / Time No Known Allergies Allergy Verified 06/10/21 21:50 Home Medications: Home Meds Aspirin [Ecotrin EC] 81 mg PO DAILY 01/27/21 [History] Furosemide 20 mg PO DAILY 01/27/21 [History] Omeprazole 40 mg PO DAILY 01/27/21 [History] Sucralfate [Carafate] 1 gm PO BID 01/27/21 [History] Past Medical History HEENT History: Reports: Cataract, Impaired Vision Cardiovascular History: Reports: Afib, Heart Failure, Other (See Below) Other Cardiovascular History: afib with RVR Respiratory History: Reports: COPD, PE, SOB 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: Reports: GERD Genitourinary History: Reports: None [employer]ER History: Reports: Musculoskeletal History: Reports: Back Pain, Chronic, Other (See Below) Other Musculoskeletal History: shoulder pain chronic Neurological History: Reports: Other (See Below) Other Neuro History: guillian barre Psychiatric History: Reports: Addiction Hematologic History: Reports: Anticoagulation Therapy - Infectious Disease History Infectious Disease History: Reports: Chicken Pox, Measles, Mumps - Past Surgical History HEENT Surgical History: Reports: LASIK, Tonsillectomy Cardiovascular Surgical History: Reports: Other (See Below) Other Cardiovascular Surgeries/Procedures: hypokalemia, Hypomagnesium GI Surgical History: Reports: None Female Surgical History: Reports: Tubal Ligation Neurological Surgical History: Reports: Lumbar Spine Social & Family History - Tobacco Use Tobacco Use Status *Q: Current Every Day Tobacco User Years of Tobacco use: 50 Packs/Tins Daily: 0.5 - Caffeine Use Caffeine Use: Reports: Coffee - Recreational Drug Use Recreational Drug Use: No - Living Situation & Occupation Living situation: Reports: , Alone, Other ([address] in [facility] has 4 children.) Occupation: Retired H&P Review of Systems - Review of Systems: Review Of Systems: See Below General: Reports: Chills, Malaise, Weakness, Fatigue, Decreased Appetite HEENT: Reports: Glasses Pulmonary: Reports: Shortness of Breath, Pleuritic Chest Pain (painful cough), Sputum (jay-yellow) Cardiovascular: Reports: Dyspnea on Exertion Gastrointestinal: Reports: Decreased Appetite, Nausea, Other (last bowel movement 06/10/2021) Genitourinary: Reports: Incontinence (wears depends brief for bladder incontinence) Musculoskeletal: Reports: No Symptoms Skin: Reports: Bruising Psychiatric: Reports: No Symptoms Neurological: Reports: No Symptoms Hematologic/Lymphatic: Reports: Easy Bruising Immunologic: Reports: No Symptoms Exam - Exam Exam: See Below - Vital Signs Vital Signs: Last Vital Signs Temp 97.1 F 06/10/21 21:54 Pulse 86 06/10/21 22:58 Resp 16 06/10/21 21:54 BP 94/56 L 06/10/21 22:58 Pulse Ox 95 06/10/21 22:04 Weight: 128 lb - Exam Quality Assessment: Supplemental Oxygen (home oxygen at 1.5 liter per hour), DVT Prophylaxis General: Alert, Oriented, Cooperative HEENT: PERRLA, Hearing Intact, Mucosa Moist & [place], Nares Patent, Normal Nasal Septum, Posterior Pharynx Clear, Conjunctiva Clear, EOMI, EACs Clear, TMs Clear Neck: Supple, Trachea Midline, 2 Lungs: Clear to Auscultation, Normal Respiratory Effort, Decreased Breath Sounds Cardiovascular: Regular Rate, Regular Rhythm, Normal S1, Normal S2 GI/Abdominal Exam: Normal Bowel Sounds, Soft, Non-Tender, No Distention, No Mass (Female) Exam: Deferred Rectal (Female) Exam: Deferred Back Exam: Normal Inspection, Full Range of Motion, NT Extremities: Normal Inspection, Normal Range of Motion, Non-Tender, No Pedal Edema, Normal Capillary Refill Peripheral Pulses: 2+: Radial (L), Radial (R), Dorsalis Pedis (L), Dorsalis Pedis (R) Skin: Warm, Dry, Intact Neurological: Cranial Nerves Intact, Reflexes Equal Bilateral, Strength Equal Bi lateral Neuro Extensive - Mental Status: Alert, Oriented x3, Normal Mood/Affect, Normal Cognition Neuro Extensive - Motor, Sensory, Reflexes: Motor/Sensory Deficits. No: Normal Gait (ambulates with assist of 2 Nurses in ER, unsteady gait) Psychiatric: Alert, Normal Affect, Normal Mood - Patient Data Lab Results Last 24 hrs: Laboratory Results - last 24 hr 06/10/21 06/10/21 06/11/21 Range/Units 22:27 22:27 00:08 WBC 12.1 H (4.5-11.0) K/uL RBC 5.15 (3.30-5.50) M/uL Hgb 9.7 L D (12.0-15.0) g/dL Hct 33.7 L (36.0-48.0) % MCV 65 L (80-98) fL MCH 19 L (27-31) pg MCHC 29 L (32-36) % Plt Count 325 (150-400) K/uL Neut % (Auto) 79.7 H (36-66) % Lymph % (Auto) 6.8 L (24-44) % [place] % (Auto) 13.0 H (2-6) % Eos % (Auto) 0.1 L (2-4) % Baso % (Auto) 0.4 (0-1) % Sodium 140 (140-148) mmol/L Potassium 3.8 (3.6-5.2) mmol/L Chloride 99 L (100-108) mmol/L Carbon Dioxide 35 H (21-32) mmol/L Anion Gap 9.8 (5.0-14.0) mmol/L BUN 15 (7-18) mg/dL Creatinine 0.8 (0.6-1.0) mg/dL Est Cr Clr Drug Dosing 52.47 mL/min Estimated GFR (MDRD) > 60 (>60) Glucose 110 H (74-106) mg/dL Calcium 8.7 (8.5-10.1) mg/dL Total Bilirubin 1.4 H D (0.2-1.0) mg/dL AST 65 H D (15-37) U/L ALT 48 (12-78) U/L Alkaline Phosphatase 376 H (46-116) U/L Troponin I < 0.017 (0.000-0.056) ng/mL Total Protein 6.1 L (6.4-8.2) g/dL Albumin 2.9 L (3.4-5.0) g/dL Globulin 3.2 (2.3-3.5) g/dL Albumin/Globulin Ratio 0.9 L (1.2-2.2) SARS-CoV-2 RNA (MARLENE) Negative (NEGATIVE) Result Diagrams: 06/10/21 22:27 06/10/21 22:27 Sepsis Event Note - Evaluation Sepsis Screening Result: No Definite Risk - Focused Exam Vital Signs: Vital Signs Temp Pulse Resp BP Pulse Ox 06/10/21 22:58 86 94/56 L 06/10/21 22:04 87 94/50 L 95 06/10/21 21:54 97.1 F 87 16 84/60 L 95 06/10/21 21:38 90 L 06/10/21 21:37 97.1 F 113 H 16 85/58 L 80 L - Problem List (1) COPD exacerbation SNOMED Code(s): 593297754 ICD Code: J44.1 - CHRONIC OBSTRUCTIVE PULMONARY DISEASE W (ACUTE) EXACERBATION Status: Acute Priority: High Current Visit: Yes (2) Weakness SNOMED Code(s): 74285599 ICD Code: R53.1 - WEAKNESS Status: Acute Priority: High Current Visit: Yes (3) Tobacco use disorder, continuous SNOMED Code(s): 182141120 ICD Code: F17.209 - NICOTINE DEPENDENCE, UNSP, W UNSP NICOTINE-INDUCED DISORDERS Status: Chronic Priority: High Current Visit: Yes (4) History of pulmonary embolism SNOMED Code(s): 509565698 ICD Code: Z86.711 - PERSONAL HISTORY OF PULMONARY EMBOLISM Status: Acute Priority: High Current Visit: Yes Problem List Initiated/Reviewed/Updated: Yes Orders Last 24hrs: Active Orders 24 hr Category Date Time Status Patient Status Manage Transfer [TRANSFER] Routine ADT 06/11/21 00:58 Ordered Chest 1V Frontal [CR] Stat Exams 06/10/21 22:13 Taken Sodium Chloride 0.9% [Saline Flush] Med 06/10/21 22:13 Active 10 ml FLUSH ASDIRECTED PRN Saline Lock Insert [OM.PC] Routine Oth 06/10/21 22:13 Ordered Resuscitation Status Routine Resus Stat 06/11/21 01:03 Ordered Medication Orders Sodium Chloride (Sodium Chloride 0.9% 10 Ml Syringe) 10 ml FLUSH ASDIRECTED PRN PRN Reason: Keep Vein Open Last Admin: 06/10/21 22:25 Dose: 10 ml Documented by: JESSICA Assessment/Plan Comment:: Assessment/Plan Comment:: ASSESSMENT AND PLAN OF CARE- COPD WITH ACUTE LOWER RESPIRATORY INFECTION, WEAKNESS, TOBACCO, HISTORY OF PULMONARY EMBOLI COPD with acute lower respiratory infection -Admit to [address] [place] [address] for further monitoring -IV Fluids for rehydration NS at 100 ml/hr -IV Antibiotic; Rocephin 1 gram IV every 24 hours -IV Zithromax 500mg every 24 hours -oxygen to keep sats greater than 95% -IV Solumedrol 62.5 mg every 6 hours -schedule Duo nebs every 6 hours, Albuterol nebs every 4 hours prn -Robitussin AC 10 ml every 6 hours as needed for painful cough -Advise to notify nurses of any chest pain or other symptoms -blood cultures x2 pending -not vaccinated for Covid 19, one hour Covid 19 virus test in ER is negative -And a.m. labs: CBC, BMP Weakness - due to acute and chronic disease. Has home health service by [facility]. lives alone, has 4 adult children. -consult to PT -consult to OT Tobacco dependence - smokes one pack per day of tobacco for the past 50 years- no interest in quitting. -declines gum or patch -encouraged to quit smoking History of Pulmonary Emboli- diagnoses January 2021 -Lovenox 30 mg subcut. Maintenance issues -Orders home meds: chronic medication -Nutrition: regular diet -Littlejohn catheter -not indicated at this time -DVT - Lovenox 30 mg subcut daily -PPI - IV Protonix 40mg daily CODE STATUS: DNR/DNI Admission status: Admit to [address] [place] [address] Admission justification. This patient will be admitted for inpatient services and is medically appropriate meeting medical necessity for inpatient admission as outlined in my documentation. I reasonably expect the patient will require inpatient services that span. Time over 2 midnights. I reasonably expect this patient to be discharged or transferred within 96 hours after admission to the critical access hospital. Disposition: home or extended care facility Primary care provider: Dr. Freedman, [facility] Hospitalist: Dr. Garcia - Mortality Measure Prognosis:: Good - Mortality Measure Prognosis:: Good
[2021-06-11] MEDS ORDERED: Sodium Chloride 0.9% 500 ML IV ONE (02:05)
[2021-06-11] MEDS ORDERED: Docusate Sodium 100 MG Cap PO PRN (03:13)
[2021-06-11] MEDS ORDERED: Morphine 2 MG/ML SYRINGE IVPUSH PRN (03:13)
[2021-06-11] MEDS ORDERED: Enoxaparin 30 MG/0.3 ML Syringe SUBCUT SCH (03:13)
[2021-06-11] MEDS ORDERED: Codeine/guaiFENesin 10-100 MG/5 ML Syrup 5 ML Cup PO PRN (03:13)
[2021-06-11] MEDS ORDERED: Acetaminophen 325 MG Tab PO PRN (03:13)
[2021-06-11] MEDS ORDERED: methylPREDNISolone Sodium Succinate 40 MG/1 ML SDV IV SCH (03:13)
[2021-06-11] MEDS ORDERED: Bisacodyl 5 MG Tab PO PRN (03:13)
[2021-06-11] MEDS ORDERED: Sodium Chloride 0.9% 1,000 ML IV SCH (03:13)
[2021-06-11] MEDS ORDERED: Albuterol 0.083% 2.5 MG/3 ML Neb Soln NEB PRN (03:13)
[2021-06-11] MEDS ORDERED: oxyCODONE 5 MG Tab PO PRN (03:13)
[2021-06-11] MEDS ORDERED: Azithromycin 500 MG in Sodium Chloride 0.9% 250 ML IV ONE (03:30)
[2021-06-11] MEDS ORDERED: Enoxaparin 40 MG/0.4 ML Syringe SUBCUT ONE (04:00)
[2021-06-11] MEDS ORDERED: cefTRIAXone 1 GM in Sodium Chloride 0.9% 50 ML IV ONE (04:00)
[2021-06-11] MEDS ORDERED: Albuterol/Ipratropium 3.0-0.5 MG/3 ML Neb Soln NEB SCH (06:00)
[2021-06-11] MEDS: Sodium Chloride 0.9% 10 ML Syringe FLUSH PRN (08:36)
[2021-06-11] MEDS: Sucralfate 1 GM Tab PO SCH ×2 (08:38→20:04)
[2021-06-11] MEDS: Pantoprazole 40 MG Tab.CR PO SCH (08:38)
[2021-06-11] MEDS: Furosemide 20 MG Tab PO SCH (08:39)
[2021-06-11] MEDS ORDERED: Pantoprazole 40 MG Vial IV SCH (09:00)
--- NOTE | 2021-06-11 09:01 | CR ---
CHEST: Portable 06/10/2021 at 10:37 PM CLINICAL HISTORY:Dyspnea, COPD COMPARISON:None FINDINGS: The heart is enlarged. Pulmonary vascularity is normal There are atherosclerotic changes in the aorta.. There is generalized interstitial prominence in the lung bases. There are no effusions. Impression: Interstitial prominence in both lung bases. Much of this may be chronic. Superimposed pneumonitis is not excluded. Comparison with prior images would be helpful
[2021-06-11] MEDS ORDERED: methylPREDNISolone Sodium Succinate 125 MG/2 ML SDV IV SCH (10:00)
[2021-06-11] MEDS: Albuterol/Ipratropium 3.0-0.5 MG/3 ML Neb Soln NEB SCH ×3 (10:45→20:08)
--- NOTE | 2021-06-11 11:39 | PCM.PN ---
- General Info Date of Service: 06/11/21 Subjective Update: No acute events overnight following admission. Symptomatically she is feeling better with less shortness of breath. Intermittently coughing. Still requiring about 2-1/2 L of supplemental oxygen. No fevers. She had a good breakfast. Iron level and ferritin level are quite low and were checked after a microcytic anemia was noted. Functional Status: Reports: Pain Controlled, Tolerating Diet - Review of Systems General: Reports: Weakness Pulmonary: Reports: Shortness of Breath - Patient Data Vitals - Most Recent: Last Vital Signs Temp 36.9 C 06/11/21 07:37 Pulse 88 06/11/21 10:45 Resp 16 06/11/21 07:37 BP 94/39 L 06/11/21 07:37 Pulse Ox 90 L 06/11/21 07:37 Weight - Most Recent: 61.689 kg I&O - Last 24 Hours: Intake & Output 06/10/21 06/11/21 06/11/21 22:59 06:59 14:59 Intake Total 540 320 Balance 540 320 Lab Results Last 24 Hours: Laboratory Results - last 24 hr 06/10/21 06/10/21 06/11/21 Range/Units 22:27 22:27 00:08 WBC 12.1 H (4.5-11.0) K/uL RBC 5.15 (3.30-5.50) M/uL Hgb 9.7 L D (12.0-15.0) g/dL Hct 33.7 L (36.0-48.0) % MCV 65 L (80-98) fL MCH 19 L (27-31) pg MCHC 29 L (32-36) % Plt Count 325 (150-400) K/uL Neut % (Auto) 79.7 H (36-66) % Lymph % (Auto) 6.8 L (24-44) % [place] % (Auto) 13.0 H (2-6) % Eos % (Auto) 0.1 L (2-4) % Baso % (Auto) 0.4 (0-1) % Sodium 140 (140-148) mmol/L Potassium 3.8 (3.6-5.2) mmol/L Chloride 99 L (100-108) mmol/L Carbon Dioxide 35 H (21-32) mmol/L Anion Gap 9.8 (5.0-14.0) mmol/L BUN 15 (7-18) mg/dL Creatinine 0.8 (0.6-1.0) mg/dL Est Cr Clr Drug Dosing 52.47 mL/min Estimated GFR (MDRD) > 60 (>60) Glucose 110 H (74-106) mg/dL Calcium 8.7 (8.5-10.1) mg/dL Total Bilirubin 1.4 H D (0.2-1.0) mg/dL AST 65 H D (15-37) U/L ALT 48 (12-78) U/L Alkaline Phosphatase 376 H (46-116) U/L Troponin I < 0.017 (0.000-0.056) ng/mL Total Protein 6.1 L (6.4-8.2) g/dL Albumin 2.9 L (3.4-5.0) g/dL Globulin 3.2 (2.3-3.5) g/dL Albumin/Globulin Ratio 0.9 L (1.2-2.2) SARS-CoV-2 RNA (MARLENE) Negative (NEGATIVE) 06/11/21 06/11/21 Range/Units 04:33 04:33 WBC 12.1 H (4.5-11.0) K/uL RBC 4.95 (3.30-5.50) M/uL Hgb 9.3 L (12.0-15.0) g/dL Hct 32.9 L (36.0-48.0) % MCV 67 L (80-98) fL MCH 19 L (27-31) pg MCHC 28 L (32-36) % Plt Count 292 (150-400) K/uL Neut % (Auto) (36-66) % Lymph % (Auto) (24-44) % [place] % (Auto) (2-6) % Eos % (Auto) (2-4) % Baso % (Auto) (0-1) % Sodium 141 (140-148) mmol/L Potassium 3.8 (3.6-5.2) mmol/L Chloride 100 (100-108) mmol/L Carbon Dioxide 35 H (21-32) mmol/L Anion Gap 9.8 (5.0-14.0) mmol/L BUN 14 (7-18) mg/dL Creatinine 0.7 (0.6-1.0) mg/dL Est Cr Clr Drug Dosing 62.48 mL/min Estimated GFR (MDRD) > 60 (>60) Glucose 105 (74-106) mg/dL Calcium 8.5 (8.5-10.1) mg/dL Total Bilirubin (0.2-1.0) mg/dL AST (15-37) U/L ALT (12-78) U/L Alkaline Phosphatase (46-116) U/L Troponin I (0.000-0.056) ng/mL Total Protein (6.4-8.2) g/dL Albumin (3.4-5.0) g/dL Globulin (2.3-3.5) g/dL Albumin/Globulin Ratio (1.2-2.2) SARS-CoV-2 RNA (MARLENE) (NEGATIVE) Med Orders - Current: Current Medications Acetaminophen (Acetaminophen 325 Mg Tab) 650 mg PO Q4H PRN PRN Reason: Pain (Mild 1-3)/fever Albuterol (Albuterol 0.083% 2.5 Mg/3 Ml Neb Soln) 2.5 mg NEB Q4H PRN PRN Reason: Shortness Of Breath/wheezing Albuterol/Ipratropium (Albuterol/Ipratropium 3.0-0.5 Mg/3 Ml Neb Soln) 3 ml NEB QIDRT [facility] Last Admin: 06/11/21 10:45 Dose: 3 ml Documented by: Bisacodyl (Bisacodyl 5 Mg Tab) 5 mg PO DAILY PRN PRN Reason: Constipation Docusate Sodium (Docusate Sodium 100 Mg Cap) 100 mg PO BID PRN PRN Reason: Constipation Enoxaparin Sodium (Enoxaparin 40 Mg/0.4 Ml Syringe) 40 mg SUBCUT Q24H [facility] Furosemide (Furosemide 20 Mg Tab) 20 mg PO DAILY [facility] Last Admin: 06/11/21 08:39 Dose: 20 mg Documented by: Guaifenesin/Codeine Phosphate (Codeine/Guaifenesin 10-100 Mg/5 Ml Syrup 5 Ml Cup) 10 ml PO Q6H PRN PRN Reason: Cough Ceftriaxone Sodium 1 gm/ (Sodium Chloride) 50 mls @ 200 mls/hr IV Q24H [facility] Stop: 06/18/21 21:01 Morphine Sulfate (Morphine 2 Mg/Ml Syringe) 2 mg IVPUSH Q2H PRN PRN Reason: Pain (severe 7-10) Oxycodone HCl (Oxycodone 5 Mg Tab) 5 mg PO Q4H PRN PRN Reason: Pain (moderate 4-6) Pantoprazole Sodium (Pantoprazole 40 Mg Tab.Cr) 40 mg PO ACBREAKFAST [facility] Last Admin: 06/11/21 08:38 Dose: 40 mg Documented by: Sodium Chloride (Sodium Chloride 0.9% 10 Ml Syringe) 10 ml FLUSH ASDIRECTED PRN PRN Reason: Keep Vein Open Last Admin: 06/11/21 08:36 Dose: 10 ml Documented by: Sucralfate (Sucralfate 1 Gm Tab) 1 gm PO BID [facility] Last Admin: 06/11/21 08:38 Dose: 1 gm Documented by: Discontinued Medications Albuterol/Ipratropium (Albuterol/Ipratropium 3.0-0.5 Mg/3 Ml Neb Soln) 3 ml NEB QID [facility] Last Admin: 06/11/21 05:36 Dose: 3 ml Documented by: Enoxaparin Sodium (Enoxaparin 30 Mg/0.3 Ml Syringe) 30 mg SUBCUT Q24H [facility] Last Admin: 06/11/21 03:45 Dose: Not Given Documented by: Enoxaparin Sodium (Enoxaparin 40 Mg/0.4 Ml Syringe) 40 mg SUBCUT NOW ONE Stop: 06/11/21 04:01 Last Admin: 06/11/21 04:42 Dose: 40 mg Documented by: Sodium Chloride (Normal Saline) 500 mls @ 500 mls/hr IV .BOLUS ONE Stop: 06/11/21 03:04 Last Admin: 06/11/21 02:05 Dose: 500 mls/hr Documented by: Sodium Chloride (Normal Saline) 1,000 mls @ 100 mls/hr IV ASDIRECTED [facility] Last Admin: 06/11/21 08:37 Dose: 100 mls/hr Documented by: Azithromycin 500 mg/ Sodium (Chloride) 250 mls @ 250 mls/hr IV Q24H [facility] Stop: 06/12/21 21:59 Azithromycin 500 mg/ Sodium (Chloride) 250 mls @ 250 mls/hr IV NOW ONE Stop: 06/11/21 04:29 Last Admin: 06/11/21 03:42 Dose: 250 mls/hr Documented by: Ceftriaxone Sodium 1 gm/ (Sodium Chloride) 50 mls @ 200 mls/hr IV NOW ONE Stop: 06/11/21 04:14 Last Admin: 06/11/21 04:45 Dose: 200 mls/hr Documented by: Methylprednisolone Sodium Succinate (Methylprednisolone Sodium Succinate 40 Mg/1 Ml Sdv) 62.5 mg IV Q6H [facility] Last Admin: 06/11/21 03:34 Dose: 62.5 mg Documented by: Methylprednisolone Sodium Succinate (Methylprednisolone Sodium Succinate 125 Mg/2 Ml Sdv) 62.5 mg IV Q6H [facility] Last Admin: 06/11/21 10:33 Dose: 62.5 mg Documented by: - Exam Quality Assessment: Supplemental Oxygen General: Alert, Oriented, Cooperative, No Acute Distress Lungs: Normal Respiratory Effort, Crackles (few both bases ). No: Wheezing Cardiovascular: Regular Rate, Regular Rhythm GI/Abdominal Exam: Soft, No Distention Extremities: No Pedal Edema. No: Increased Warmth Psy/Mental Status: Alert, Normal Affect - Patient Data Lab Results Last 24 hrs: Laboratory Results - last 24 hr 06/10/21 06/10/21 06/11/21 Range/Units 22:27 22:27 00:08 WBC 12.1 H (4.5-11.0) K/uL RBC 5.15 (3.30-5.50) M/uL Hgb 9.7 L D (12.0-15.0) g/dL Hct 33.7 L (36.0-48.0) % MCV 65 L (80-98) fL MCH 19 L (27-31) pg MCHC 29 L (32-36) % Plt Count 325 (150-400) K/uL Neut % (Auto) 79.7 H (36-66) % Lymph % (Auto) 6.8 L (24-44) % [place] % (Auto) 13.0 H (2-6) % Eos % (Auto) 0.1 L (2-4) % Baso % (Auto) 0.4 (0-1) % Sodium 140 (140-148) mmol/L Potassium 3.8 (3.6-5.2) mmol/L Chloride 99 L (100-108) mmol/L Carbon Dioxide 35 H (21-32) mmol/L Anion Gap 9.8 (5.0-14.0) mmol/L BUN 15 (7-18) mg/dL Creatinine 0.8 (0.6-1.0) mg/dL Est Cr Clr Drug Dosing 52.47 mL/min Estimated GFR (MDRD) > 60 (>60) Glucose 110 H (74-106) mg/dL Calcium 8.7 (8.5-10.1) mg/dL Total Bilirubin 1.4 H D (0.2-1.0) mg/dL AST 65 H D (15-37) U/L ALT 48 (12-78) U/L Alkaline Phosphatase 376 H (46-116) U/L Troponin I < 0.017 (0.000-0.056) ng/mL Total Protein 6.1 L (6.4-8.2) g/dL Albumin 2.9 L (3.4-5.0) g/dL Globulin 3.2 (2.3-3.5) g/dL Albumin/Globulin Ratio 0.9 L (1.2-2.2) SARS-CoV-2 RNA (MARLENE) Negative (NEGATIVE) 06/11/21 06/11/21 Range/Units 04:33 04:33 WBC 12.1 H (4.5-11.0) K/uL RBC 4.95 (3.30-5.50) M/uL Hgb 9.3 L (12.0-15.0) g/dL Hct 32.9 L (36.0-48.0) % MCV 67 L (80-98) fL MCH 19 L (27-31) pg MCHC 28 L (32-36) % Plt Count 292 (150-400) K/uL Neut % (Auto) (36-66) % Lymph % (Auto) (24-44) % [place] % (Auto) (2-6) % Eos % (Auto) (2-4) % Baso % (Auto) (0-1) % Sodium 141 (140-148) mmol/L Potassium 3.8 (3.6-5.2) mmol/L Chloride 100 (100-108) mmol/L Carbon Dioxide 35 H (21-32) mmol/L Anion Gap 9.8 (5.0-14.0) mmol/L BUN 14 (7-18) mg/dL Creatinine 0.7 (0.6-1.0) mg/dL Est Cr Clr Drug Dosing 62.48 mL/min Estimated GFR (MDRD) > 60 (>60) Glucose 105 (74-106) mg/dL Calcium 8.5 (8.5-10.1) mg/dL Total Bilirubin (0.2-1.0) mg/dL AST (15-37) U/L ALT (12-78) U/L Alkaline Phosphatase (46-116) U/L Troponin I (0.000-0.056) ng/mL Total Protein (6.4-8.2) g/dL Albumin (3.4-5.0) g/dL Globulin (2.3-3.5) g/dL Albumin/Globulin Ratio (1.2-2.2) SARS-CoV-2 RNA (MARLENE) (NEGATIVE) Result Diagrams: 06/11/21 04:33 06/11/21 04:33 Sepsis Event Note - Evaluation Sepsis Screening Result: Sepsis Risk - Focused Exam Vital Signs: Vital Signs Temp Temp Pulse Resp BP Pulse Ox Pulse Ox 06/11/21 10:45 88 06/11/21 07:37 36.9 C 89 16 94/39 L 90 L 06/11/21 07:24 95 06/11/21 05:00 94 L 06/11/21 03:56 89 L 06/11/21 03:12 37.4 C 100 18 104/65 88 L 06/11/21 02:36 107/60 06/11/21 01:41 37.6 C 97 18 84/22 L 98 - Problem List Review Problem List Initiated/Reviewed/Updated: Yes - My Orders Last 24 Hours: My Active Orders 06/11/21 11:36 FERRITIN [CHEM] Routine IRON/TIBC [CHEM] Routine 06/11/21 11:38 Convert IV to Saline Lock [OM.PC] Routine 06/11/21 16:30 predniSONE 20 mg PO BIDAC 06/11/21 21:00 Enoxaparin [Lovenox] 40 mg SUBCUT Q24H 06/12/21 09:00 Azithromycin [Zithromax] 500 mg PO DAILY - Plan Plan:: ASSESSMENT AND PLAN- Acute bronchitis-complicated by acute exacerbation of COPD. Still requiring supplemental oxygen but she is feeling better since admission. -Saline lock IV -Antibiotic coverage with cefdinir and a azithromycin -oxygen to keep sats greater than 90% -Transition to twice daily prednisone -Scheduled and as needed nebulizers -Symptomatic management of cough -not vaccinated for Covid 19, one hour Covid 19 virus test in ER is negative. 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 Has home health service by [facility]. lives alone, has 4 adult children. -consult to PT -consult to OT Tobacco dependence - smokes one pack per day of tobacco for the past 50 years- no interest in quitting. -declines gum or patch -encouraged cessation History of Pulmonary Emboli-diagnoses January 2021 -Lovenox 30 mg subcut. Maintenance issues -Nutrition: regular diet -Littlejohn catheter -not indicated at this time -DVT - Lovenox 30 mg subcut daily -GI -PPI Disposition: home with home care Kd Garcia MD
[2021-06-11] MEDS: predniSONE 20 MG Tab PO SCH (17:48)
[2021-06-11] MEDS: Cefdinir 300 MG Cap PO SCH (20:05)
[2021-06-11] MEDS ORDERED: Azithromycin 500 MG in Sodium Chloride 0.9% 250 ML IV SCH (21:00)
[2021-06-11] MEDS ORDERED: Enoxaparin 40 MG/0.4 ML Syringe SUBCUT SCH (21:00)
[2021-06-11] MEDS ORDERED: cefTRIAXone 1 GM in Sodium Chloride 0.9% 50 ML IV SCH (21:00)
[2021-06-12] MEDS: Albuterol/Ipratropium 3.0-0.5 MG/3 ML Neb Soln NEB SCH ×2 (07:06→10:52)
[2021-06-12] MEDS: predniSONE 20 MG Tab PO SCH (07:50)
[2021-06-12] MEDS: Pantoprazole 40 MG Tab.CR PO SCH (07:51)
[2021-06-12] MEDS: Sucralfate 1 GM Tab PO SCH (08:57)
[2021-06-12] MEDS: Furosemide 20 MG Tab PO SCH (08:57)
[2021-06-12] MEDS: Cefdinir 300 MG Cap PO SCH (08:57)
[2021-06-12] MEDS ORDERED: Azithromycin 250 MG Tab PO SCH (09:00)
--- NOTE | 2021-06-12 12:07 | PCM.DCSUM1 ---
Discharge Summary - Hospital Course Brief History: 75-year-old female with history of COPD, tobacco dependence who presented with increasing cough, shortness of breath and weakness. She was admitted for management of suspected acute bronchitis with COPD exacerbation and acute respiratory failure with hypoxia. 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 - Discharge Diagnosis/Problem(s) (1) Acute bronchitis SNOMED Code(s): 55754088 ICD Code: J20.9 - ACUTE BRONCHITIS, UNSPECIFIED Status: Acute Qualifiers: Bronchitis organism: unspecified organism Qualified Code(s): J20.9 - Acute bronchitis, unspecified (2) Acute respiratory failure with hypoxia SNOMED Code(s): 07908413, 607235801 ICD Code: J96.01 - ACUTE RESPIRATORY FAILURE WITH HYPOXIA Status: Acute (3) COPD exacerbation SNOMED Code(s): 316296407 ICD Code: J44.1 - CHRONIC OBSTRUCTIVE PULMONARY DISEASE W (ACUTE) EXACERBATION Status: Acute Priority: High (4) Tobacco use SNOMED Code(s): 517360763 ICD Code: Z72.0 - TOBACCO USE Status: Chronic (5) Iron deficiency anemia SNOMED Code(s): 53440273 ICD Code: D50.9 - IRON DEFICIENCY ANEMIA, UNSPECIFIED Status: Acute Qualifiers: Iron deficiency anemia type: unspecified iron deficiency Qualified Code(s): D50.9 - Iron deficiency anemia, unspecified - Patient Summary/Data Consults: Consultations 06/11/21 03:13 OT Evaluation and Treatment [CONS] Routine Please Evaluate and Treat. OT Reason for Consult: Discharge Planning This query below is only for informational purposes and is not editable. PT Evaluation and Treatment [CONS] Routine Please Evaluate and Treat. PT Reason for Consult: Strengthening This query below is only for informational purposes and is not editable. Hospital Course: Ritika presented to the emergency room by ambulance with increasing cough, shortness of breath and weakness. Symptoms have progressed over several days. Work-up in the emergency room revealed significant hypoxia requiring 2-1/2 to 3 L of supplemental oxygen. Chest x-ray did not show definitive pneumonia. She had a mild leukocytosis. She was started on broad-spectrum antibiotics to cover the COPD exacerbation/bronchitis as well as IV steroids. Overnight following admission there were no acute issues. By the morning after admission the patient was feeling somewhat better. Her wheezing had resolved. She did continue to require 2-1/2 L but otherwise was doing well. We elected to transition her steroids and antibiotics to oral at this point because her IV had infiltrated. She remained stable throughout that day and overnight. On the morning of discharge she is feeling quite a bit better. She is no longer requiring supplemental oxygen and is able to have adequate oxygen saturation on room air. Her strength is improved. Her appetite has improved. She feels well enough to go home at this point. I believe she is safe for outpatient management. I am not planning to continue her steroids since her wheezing has resolved very quickly. She will be on antibiotics for a total of 5 days with cefdinir and a azithromycin being continued at the time of discharge. She has follow-up planned for next week. During the hospital stay we did discuss tobacco cessation. At this time she is not interested in quitting. She thinks that it is time to start cutting down but does not want to quit. Also of note during the hospital stay she was noted to have a microcytic anemia. She reports a history of iron deficiency. She has had a colonoscopy within the last 4 years that did not show significant pathology. I suspect this is related to poor intake. We did discuss treatment options and she was interested in an oral iron supplement. - Patient Instructions Diet: Regular Diet as Tolerated Activity: As Tolerated Showering/Bathing: May Shower Other/Special Instructions: 1. Please take the following antibiotics to complete your treatment for acute bronchitis with hypoxia. Take cefdinir 300 mg caps twice daily for 6 doses. Your first dose will be due tonight. Take azithromycin 500 mg tab daily in the morning for 3 days. Your first dose will be due tomorrow. Continue to use your oxygen at night and if you are short of breath. 2. Start taking ferrous sulfate 325 mg daily. This is an iron supplement to help improve your iron deficiency anemia. 3. Resume previous home health care orders. - Discharge Plan *PRESCRIPTION DRUG MONITORING PROGRAM REVIEWED*: Not Applicable *COPY OF PRESCRIPTION DRUG MONITORING REPORT IN PATIENT MALIKA: Not Applicable Prescriptions/Med Rec: Azithromycin 500 mg PO DAILY #3 tablet Ferrous Sulfate 325 mg PO DAILY #30 tablet Cefdinir [Omnicef] 300 mg PO BID #6 cap Home Medications: Home Meds Aspirin [Ecotrin EC] 81 mg PO DAILY 01/27/21 [History] Furosemide 20 mg PO DAILY 01/27/21 [History] Omeprazole 40 mg PO DAILY 01/27/21 [History] Sucralfate [Carafate] 1 gm PO BID 01/27/21 [History] Azithromycin 500 mg PO DAILY #3 tablet 06/12/21 [Rx] Cefdinir [Omnicef] 300 mg PO BID #6 cap 06/12/21 [Rx] Ferrous Sulfate 325 mg PO DAILY #30 tablet 06/12/21 [Rx] Oxygen Therapy Mode: Nasal Cannula (at night) Patient Handouts: Azithromycin tablets, Iron Deficiency Anemia, Adult, Acute Bronchitis, Adult - Discharge Summary/Plan Comment DC Time >30 min.: Yes Total # of Minutes for Discharge Time: 35 - set up home care - Patient Data Vitals - Most Recent: Last Vital Signs Temp 35.9 C L 06/12/21 11:26 Pulse 95 06/12/21 11:26 Resp 16 06/12/21 11:26 BP 100/60 06/12/21 11:26 Pulse Ox 91 L 06/12/21 11:26 Weight - Most Recent: 61.689 kg I&O - Last 24 hours: Intake & Output 06/11/21 06/12/21 06/12/21 22:59 06:59 14:59 Intake Total 200 520 Balance 200 520 Lab Results - Last 24 hrs: Laboratory Results - last 24 hr 06/11/21 06/11/21 Range/Units 11:36 11:36 Iron 17 L (50-170) ug/dL TIBC 424 (250-450) ug/dl % Saturation 4 L (20-55) % Ferritin 12 (8-388) ng/ml KARLA Results - Last 24 hrs: Microbiology 06/11/21 02:15 Aerobic Blood Culture - Preliminary Blood - Venous NO GROWTH AFTER 1 DAY Anaerobic Blood Culture - Preliminary NO GROWTH AFTER 1 DAY 06/11/21 02:25 Aerobic Blood Culture - Preliminary Blood - Venous - Lab Draw NO GROWTH AFTER 1 DAY Anaerobic Blood Culture - Preliminary NO GROWTH AFTER 1 DAY Med Orders - Current: Current Medications Acetaminophen (Acetaminophen 325 Mg Tab) 650 mg PO Q4H PRN PRN Reason: Pain (Mild 1-3)/fever Albuterol (Albuterol 0.083% 2.5 Mg/3 Ml Neb Soln) 2.5 mg NEB Q4H PRN PRN Reason: Shortness Of Breath/wheezing Albuterol/Ipratropium (Albuterol/Ipratropium 3.0-0.5 Mg/3 Ml Neb Soln) 3 ml NEB QIDRT [facility] Last Admin: 06/12/21 10:52 Dose: 3 ml Documented by: Azithromycin (Azithromycin 250 Mg Tab) 500 mg PO DAILY [facility] Last Admin: 06/12/21 08:58 Dose: 500 mg Documented by: Bisacodyl (Bisacodyl 5 Mg Tab) 5 mg PO DAILY PRN PRN Reason: Constipation Cefdinir (Cefdinir 300 Mg Cap) 300 mg PO BID [facility] Last Admin: 06/12/21 08:57 Dose: 300 mg Documented by: Docusate Sodium (Docusate Sodium 100 Mg Cap) 100 mg PO BID PRN PRN Reason: Constipation Enoxaparin Sodium (Enoxaparin 40 Mg/0.4 Ml Syringe) 40 mg SUBCUT Q24H [facility] Last Admin: 06/11/21 20:04 Dose: 40 mg Documented by: Furosemide (Furosemide 20 Mg Tab) 20 mg PO DAILY [facility] Last Admin: 06/12/21 08:57 Dose: 20 mg Documented by: Guaifenesin/Codeine Phosphate (Codeine/Guaifenesin 10-100 Mg/5 Ml Syrup 5 Ml Cup) 10 ml PO Q6H PRN PRN Reason: Cough Morphine Sulfate (Morphine 2 Mg/Ml Syringe) 2 mg IVPUSH Q2H PRN PRN Reason: Pain (severe 7-10) Oxycodone HCl (Oxycodone 5 Mg Tab) 5 mg PO Q4H PRN PRN Reason: Pain (moderate 4-6) Pantoprazole Sodium (Pantoprazole 40 Mg Tab.Cr) 40 mg PO ACBREAKFAST [facility] Last Admin: 06/12/21 07:51 Dose: 40 mg Documented by: Prednisone (Prednisone 20 Mg Tab) 20 mg PO BIDAC [facility] Last Admin: 06/12/21 07:50 Dose: 20 mg Documented by: Sodium Chloride (Sodium Chloride 0.9% 10 Ml Syringe) 10 ml FLUSH ASDIRECTED PRN PRN Reason: Keep Vein Open Last Admin: 06/11/21 08:36 Dose: 10 ml Documented by: Sucralfate (Sucralfate 1 Gm Tab) 1 gm PO BID [facility] Last Admin: 06/12/21 08:57 Dose: 1 gm Documented by: Discontinued Medications Albuterol/Ipratropium (Albuterol/Ipratropium 3.0-0.5 Mg/3 Ml Neb Soln) 3 ml NEB QID [facility] Last Admin: 06/11/21 05:36 Dose: 3 ml Documented by: Enoxaparin Sodium (Enoxaparin 30 Mg/0.3 Ml Syringe) 30 mg SUBCUT Q24H [facility] Last Admin: 06/11/21 03:45 Dose: Not Given Documented by: Enoxaparin Sodium (Enoxaparin 40 Mg/0.4 Ml Syringe) 40 mg SUBCUT NOW ONE Stop: 06/11/21 04:01 Last Admin: 06/11/21 04:42 Dose: 40 mg Documented by: Sodium Chloride (Normal Saline) 500 mls @ 500 mls/hr IV .BOLUS ONE Stop: 06/11/21 03:04 Last Admin: 06/11/21 02:05 Dose: 500 mls/hr Documented by: Sodium Chloride (Normal Saline) 1,000 mls @ 100 mls/hr IV ASDIRECTED [facility] Last Admin: 06/11/21 08:37 Dose: 100 mls/hr Documented by: Azithromycin 500 mg/ Sodium (Chloride) 250 mls @ 250 mls/hr IV Q24H [facility] Stop: 06/12/21 21:59 Ceftriaxone Sodium 1 gm/ (Sodium Chloride) 50 mls @ 200 mls/hr IV Q24H [facility] Stop: 06/18/21 21:01 Azithromycin 500 mg/ Sodium (Chloride) 250 mls @ 250 mls/hr IV NOW ONE Stop: 06/11/21 04:29 Last Admin: 06/11/21 03:42 Dose: 250 mls/hr Documented by: Ceftriaxone Sodium 1 gm/ (Sodium Chloride) 50 mls @ 200 mls/hr IV NOW ONE Stop: 06/11/21 04:14 Last Admin: 06/11/21 04:45 Dose: 200 mls/hr Documented by: Methylprednisolone Sodium Succinate (Methylprednisolone Sodium Succinate 40 Mg/1 Ml Sdv) 62.5 mg IV Q6H [facility] Last Admin: 06/11/21 03:34 Dose: 62.5 mg Documented by: Methylprednisolone Sodium Succinate (Methylprednisolone Sodium Succinate 125 Mg/2 Ml Sdv) 62.5 mg IV Q6H [facility] Last Admin: 06/11/21 10:33 Dose: 62.5 mg Documented by:
== END 2021-06-12 13:48 | disposition home health service (06) | DRG 190 ==
LOC: JP.ED 21:33 → JP.MS 06-11 00:58
PROVIDERS: ADMIT Internal Medicine; ATTEND Internal Medicine
DX: J44.0 Chronic obstructive pulmonary disease with (acute) lower respiratory infection (principal); J96.01 Acute respiratory failure with hypoxia; J44.1 Chronic obstructive pulmonary disease with (acute) exacerbation; D50.9 Iron deficiency anemia, unspecified; R53.1 Weakness; H54.7 Unspecified visual loss; M54.9 Dorsalgia, unspecified; I48.91 Unspecified atrial fibrillation; Z66 Do not resuscitate; E83.42 Hypomagnesemia; I50.9 Heart failure, unspecified; F17.210 Nicotine dependence, cigarettes, uncomplicated; K21.9 Gastro-esophageal reflux disease without esophagitis; Z20.822 Contact with and (suspected) exposure to COVID-19; G89.29 Other chronic pain; Z79.01 Long term (current) use of anticoagulants; Z98.51 Tubal ligation status; M54.2 Cervicalgia; M25.519 Pain in unspecified shoulder; Z86.711 Personal history of pulmonary embolism; Z71.6 Tobacco abuse counseling; Z79.82 Long term (current) use of aspirin; Z79.899 Other long term (current) drug therapy
CPT/HCPCS: 36415; 71045 ×2; 80053; 84484; 85025; 99285; U0002; 80048; 82728; 83550; 85027; 87040; 94640; 97110-GP; 97162-GP; 97165-GO; 97530-GP; 97535-GO; 97535-GP; A9270-GY; J0456; J0696; J1650; J2920; J2930; J7030; J7040; J7050; J7512; J7620-GY

== ENCOUNTER 2021-06-13 04:18 | Emergency (ER) | payer MEDICARE, OTHER ==
[2021-06-13] MEDS ORDERED: Adenosine 6 MG/2 ML SDV IVPUSH ONE (04:20)
[2021-06-13] MEDS ORDERED: Diltiazem 25 MG/5 ML SDV IVPUSH ONE (04:27)
--- NOTE | 2021-06-13 04:28 | EDM.PDOC ---
ED HPI GENERAL MEDICAL PROBLEM - General Chief Complaint: Cardiovascular Problem Stated Complaint: SOB Time Seen by Provider: 06/13/21 04:20 Source of Information: Reports: Patient, EMS History Limitations: Reports: No Limitations - History of Present Illness INITIAL COMMENTS - FREE TEXT/NARRATIVE: 75-year-old female presenting to the ED via [facility] for evaluation of rapid heartbeat and shortness of breath. [facility] after being diagnosed with acute bronchitis. She was home tonight when she started to experience some chest tightness and rapid heartbeat. EMS did establish an IV and give her adenosine 5 mg IV push. They believe they saw atrial flutter but they were unable to record it. The patient does not have a previous history significant for SVT. Patient does reportedly have a history in the [place] chart of atrial fib and had been on apixaban for pulmonary embolism, however, she does not recall being on this medication and has not taken it for some time. The patient reportedly is Covid negative prior to her hospitalization. She does have a history for COPD and was started on cefdinir and azithromycin for acute on chronic bronchitis upon being discharged yesterday morning from the hospital. - Related Data Allergies Allergy/AdvReac Type Severity Reaction Status Date / Time No Known Allergies Allergy Verified 06/13/21 04:23 Home Meds: Home Meds Aspirin [Ecotrin EC] 81 mg PO DAILY 01/27/21 [History] Furosemide 20 mg PO DAILY 01/27/21 [History] Omeprazole 40 mg PO DAILY 01/27/21 [History] Sucralfate [Carafate] 1 gm PO BID 01/27/21 [History] Azithromycin 500 mg PO DAILY #3 tablet 06/12/21 [Rx] Cefdinir [Omnicef] 300 mg PO BID #6 cap 06/12/21 [Rx] Ferrous Sulfate 325 mg PO DAILY #30 tablet 06/12/21 [Rx] Past Medical History HEENT History: Reports: Cataract, Impaired Vision Cardiovascular History: Reports: Afib, Heart Failure, Other (See Below) Other Cardiovascular History: afib with RVR Respiratory History: Reports: COPD, PE, SOB 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: Reports: GERD Genitourinary History: Reports: None 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: Musculoskeletal History: Reports: Back Pain, Chronic, Other (See Below) Other Musculoskeletal History: shoulder pain chronic Neurological History: Reports: Other (See Below) Other Neuro History: guillian barre Psychiatric History: Reports: Addiction Hematologic History: Reports: Anticoagulation Therapy - Infectious Disease History Infectious Disease History: Reports: Chicken Pox, Measles, Mumps - Past Surgical History HEENT Surgical History: Reports: LASIK, Tonsillectomy Cardiovascular Surgical History: Reports: Other (See Below) Other Cardiovascular Surgeries/Procedures: hypokalemia, Hypomagnesium GI Surgical History: Reports: None Female Surgical History: Reports: Tubal Ligation Neurological Surgical History: Reports: Lumbar Spine Social & Family History - Family History Family Medical History: No Pertinent Family History - Caffeine Use Caffeine Use: Reports: Coffee - Living Situation & Occupation Living situation: Reports: , Alone, Other ([address] in [place], [place]. has 4 children.) Occupation: Retired ED ROS GENERAL - Review of Systems Review Of Systems: See Below Constitutional: Reports: Diaphoresis HEENT: Reports: No Symptoms Respiratory: Reports: Shortness of Breath, Cough Cardiovascular: Reports: Chest Pain (Chest pressure), Palpitations (Rapid heartbeat) GI/Abdominal: Reports: Nausea : Reports: No Symptoms Musculoskeletal: Reports: No Symptoms Skin: Reports: No Symptoms Neurological: Reports: No Symptoms Psychiatric: Reports: Anxiety Hematologic/Lymphatic: Reports: No Symptoms ED EXAM, GENERAL - Physical Exam Exam: See Below Exam Limited By: No Limitations General Appearance: Alert, Anxious, Mild Distress Eye Exam: Bilateral Eye: EOMI, PERRL Throat/Mouth: Normal Oropharynx, Normal Voice, No Airway Compromise Head: Atraumatic, Normocephalic Neck: Normal Inspection, Supple. No: Lymphadenopathy (R), Lymphadenopathy (L) Respiratory/Chest: No Accessory Muscle Use, Chest Non-Tender, Decreased Breath Sounds (Bibasilar), Wheezing (Scant inspiratory wheezing, scant expiratory wheezing with prolonged expiration) Cardiovascular: Normal Peripheral Pulses, Regular Rate, Rhythm, No Murmur, Tachycardia (Rapid and strong pulse) Peripheral Pulses: 2+: Radial (L), Radial (R), Dorsalis Pedis (L), Dorsalis Pedis (R) GI/Abdominal: Normal Bowel Sounds, Soft, Non-Tender Extremities: Normal Inspection, Normal Range of Motion. No: Pedal Edema Neurological: Alert, Oriented, Normal Cognition, No Motor/Sensory Deficits Psychiatric: Normal Affect, Anxious Skin Exam: Warm, Dry, Intact, Normal Color #1 Interpretation EKG Date: 06/13/21 Time: 04:13 Rhythm: A-Flutter Rate (Beats/Min): 175 P-Wave: Present (Sawtooth wave consistent with atrial flutter) QRS: Normal ST-T: Other (Nonspecific ST-T changes) QT: Normal Comparison: NA - No Prior EKG Course - Vital Signs Last Recorded V/S: Last Vital Signs Temp 36.2 C 06/13/21 04:19 Pulse 113 H 06/13/21 05:29 Resp 22 H 06/13/21 05:29 BP 121/73 06/13/21 05:29 Pulse Ox 92 L 06/13/21 05:29 - Orders/Labs/Meds Orders: Active Orders 24 hr Category Date Time Status COMPREHENSIVE METABOLIC PN,CMP [CHEM] Stat Lab 06/13/21 04:40 Received PTT,PARTIAL THROMBOPLSTIN TIME [COAG] Stat Lab 06/13/21 05:50 Ordered TROPONIN I [CHEM] Stat Lab 06/13/21 04:40 Received TSH ULTRASENSITIVE [CHEM] Stat Lab 06/13/21 04:40 Received Diltiazem [Cardizem] 100 mg Med 06/13/21 05:00 Active Sodium Chloride 0.9% [Normal Saline] 100 ml IV TITRATE EKG 12 Lead [EK] Routine Ther 06/13/21 04:20 Ordered Medication Orders Diltiazem HCl 100 mg/ Sodium (Chloride) 100 mls @ 5 mls/hr IV TITRATE JOHNNY; Protocol Last Titration: 06/13/21 05:39 Dose: 15 mg/hr, 15 mls/hr Documented by: Titration: 06/13/21 05:15 Dose: 10 mg/hr, 10 mls/hr Documented by: Admin: 06/13/21 04:59 Dose: 5 mg/hr, 5 mls/hr Documented by: RICKIE Labs: Laboratory Tests 06/13/21 Range/Units 04:40 WBC 13.0 H (4.5-11.0) K/uL RBC 5.31 (3.30-5.50) M/uL Hgb 9.9 L (12.0-15.0) g/dL Hct 35.7 L (36.0-48.0) % MCV 67 L (80-98) fL MCH 19 L (27-31) pg MCHC 28 L (32-36) % Plt Count 326 (150-400) K/uL Neut % (Auto) 75.7 H (36-66) % Lymph % (Auto) 7.6 L (24-44) % Cloud % (Auto) 16.4 H (2-6) % Eos % (Auto) 0.2 L (2-4) % Baso % (Auto) 0.1 (0-1) % Meds: Medications Generic Name Dose Route Start Last Admin Trade Name Freq PRN Reason Stop Dose Admin Diltiazem HCl 100 mg/ Sodium 100 mls @ 5 mls/hr 06/13/21 05:00 06/13/21 05:39 Chloride IV 15 mg/hr TITRATE JOHNNY 15 mls/hr Titration Protocol 5 MG/HR Discontinued Medications Generic Name Dose Route Start Last Admin Trade Name Freq PRN Reason Stop Dose Admin Adenosine 12 mg 06/13/21 04:20 06/13/21 04:26 Adenosine 6 Mg/2 Ml Sdv IVPUSH 06/13/21 04:21 12 mg NOW ONE Administration Diltiazem HCl 15 mg 06/13/21 04:27 06/13/21 04:33 Diltiazem 25 Mg/5 Ml Sdv IVPUSH 06/13/21 04:28 15 mg ONETIME ONE Administration Enoxaparin Sodium 60 mg 06/13/21 05:50 Enoxaparin 60 Mg/0.6 Ml Syringe SUBCUT 06/13/21 05:51 ONETIME ONE Enoxaparin Sodium 60 mg 06/13/21 05:55 Enoxaparin 60 Mg/0.6 Ml Syringe SUBCUT 06/13/21 05:56 ONETIME ONE - Re-Assessments/Exams Free Text/Narrative Re-Assessment/Exam: 06/13/21 05:31 patient was given Adenocard 12 mg IV push and we were able to capture her underlying rhythm which is atrial flutter so she is conducting at a 2-1 with a heart rate of 175 bpm. We did start her with the diltiazem bolus at 15 mg which brought her from 170s down into the 140s. This was not adequate so we started her on a diltiazem drip to rate control her. The patient does not have a previous history of atrial flutter but was recently diagnosed and discharged with bronchitis. As she is on a diltiazem drip and we have no a vailable ICU beds, we will have to find a suitable hospital to arrange for transfer for further care. 06/13/21 06:04 initial labs show a CBC with a leukocyte count of 13.0, hemoglobin of 9.9, hematocrit of 35.7, and a platelet count of 326,000. The comprehensive metabolic panel shows sodium 142, potassium 3.6, chloride 103, 4, BUN of 15 with a creatinine of 0.6 and a glucose of 94. The AST is 29, ALT is 39, alkaline phosphatase is 279, troponin of 0.025 and TSH of 2.205. The EKG shows atrial flutter with a rate of 175 bpm. We did initiate anticoagulation with Lovenox 60 mg subcutaneous. I discussed the case with Dr. Londono from [facility] who accepts the patient in transfer for admission to the progressive cardiac unit for further evaluation and care. Departure - Departure Time of Disposition: 06:10 Disposition: DC/Tfer to [facility] 02 Reason for Transfer *Q: Other (Not an acute coronary syndrome) Clinical Impression: Atrial flutter with rapid ventricular response, Acute exacerbation of chronic bronchitis COPD (chronic obstructive pulmonary disease) Qualifiers: COPD type: unspecified COPD Qualified Code(s): J44.9 - Chronic obstructive pulmonary disease, unspecified Referrals: PCP,Unknown [Primary Care Provider] - Forms: ED Department Discharge Sepsis Event Note (ED) - Evaluation Sepsis Screening Result: No Definite Risk - Focused Exam Vital Signs: Vital Signs Temp Pulse Resp BP Pulse Ox 06/13/21 05:29 113 H 22 H 121/73 92 L 06/13/21 05:17 118 H 25 H 114/67 93 L 06/13/21 04:56 142 H 25 H 115/66 95 06/13/21 04:41 154 H 28 H 122/96 H 93 L 06/13/21 04:26 175 H 132/85 06/13/21 04:19 36.2 C 172 H 17 124/77 73 L - Problem List & Annotations (1) Acute exacerbation of chronic bronchitis SNOMED Code(s): 815774497 Code(s): J20.9 - ACUTE BRONCHITIS, UNSPECIFIED; J42 - UNSPECIFIED CHRONIC BRONCHITIS Status: Acute Priority: High Current Visit: Yes (2) Atrial flutter with rapid ventricular response SNOMED Code(s): 8720625, 3280552 Code(s): I48.92 - UNSPECIFIED ATRIAL FLUTTER Status: Acute Priority: High Current Visit: Yes - Problem List Review Problem List Initiated/Reviewed/Updated: Yes - My Orders Last 24 Hours: My Active Orders 06/13/21 04:20 EKG 12 Lead [EK] Routine 06/13/21 04:40 COMPREHENSIVE METABOLIC PN,CMP [CHEM] Stat TROPONIN I [CHEM] Stat TSH ULTRASENSITIVE [CHEM] Stat 06/13/21 05:00 Diltiazem [Cardizem] 100 mg Sodium Chloride 0.9% [Normal Saline] 100 ml IV TITRATE 06/13/21 05:50 PTT,PARTIAL THROMBOPLSTIN TIME [COAG] Stat - Assessment/Plan Last 24 Hours: My Active Orders 06/13/21 04:20 EKG 12 Lead [EK] Routine 06/13/21 04:40 COMPREHENSIVE METABOLIC PN,CMP [CHEM] Stat TROPONIN I [CHEM] Stat TSH ULTRASENSITIVE [CHEM] Stat 06/13/21 05:00 Diltiazem [Cardizem] 100 mg Sodium Chloride 0.9% [Normal Saline] 100 ml IV TITRATE 06/13/21 05:50 PTT,PARTIAL THROMBOPLSTIN TIME [COAG] Stat
[2021-06-13] MEDS: Diltiazem 100 MG in Sodium Chloride 0.9% 100 ML IV SCH ×2 (04:59→07:35)
[2021-06-13] MEDS ORDERED: Enoxaparin 60 MG/0.6 ML Syringe SUBCUT ONE ×2 (05:50→05:55)
== END 2021-06-13 07:35 ==
LOC: JP.ED 04:18
DX: J44.1 Chronic obstructive pulmonary disease with (acute) exacerbation (principal); I48.92 Unspecified atrial flutter; I48.91 Unspecified atrial fibrillation; I50.9 Heart failure, unspecified; K21.9 Gastro-esophageal reflux disease without esophagitis; Z79.01 Long term (current) use of anticoagulants; Z79.82 Long term (current) use of aspirin; Z79.899 Other long term (current) drug therapy
CPT/HCPCS: 36415; 80053; 84443; 84484; 85025; 85730; 93005; 96365; 96366; 96372; 96375; 99285; J0153; J1650; J3490

== ENCOUNTER 2021-07-31 21:10 | Emergency (ER) | payer MEDICARE, OTHER ==
--- NOTE | 2021-07-31 22:12 | EDM.PDOC ---
ED HPI GENERAL MEDICAL PROBLEM - General Chief Complaint: General Stated Complaint: MEDICAL VIA NORTH Time Seen by Provider: 07/31/21 21:13 Source of Information: Reports: Patient, EMS History Limitations: Reports: No Limitations - History of Present Illness INITIAL COMMENTS - FREE TEXT/NARRATIVE: Ritika is a 75-year-old female brought in by [facility] from [facility] living in [place], [place] for evaluation of hyperkalemia. The patient was seen by Junie Freedman who ordered labs including CBC and comprehensive metabolic panel. Her labs returned showing a potassium of 6.9 but it was also noted to be hemolyzed. The provider was not able to review the labs but Dr. Abdullahi Jackson did and recommend in the emergency room be evaluated for hyperkalemia. The patient did not have a way to come to the emergency room to be evaluated so she had to call EMS to bring her in. She denies any symptoms. She has had hyperkalemia in the past. Unfortunately with this news she became quite upset and did not eat supper tonight and now will not have a way to get home until morning. - Related Data Allergies Allergy/AdvReac Type Severity Reaction Status Date / Time No Known Allergies Allergy Verified 07/31/21 21:24 Home Meds: Home Meds Furosemide 20 mg PO DAILY 01/27/21 [History] Omeprazole 40 mg PO DAILY 01/27/21 [History] Sucralfate [Carafate] 1 gm PO BID 01/27/21 [History] Ferrous Sulfate 325 mg PO DAILY #30 tablet 06/12/21 [Rx] Past Medical History HEENT History: Reports: Cataract, Impaired Vision Cardiovascular History: Reports: Afib, Heart Failure Other Cardiovascular History: afib with RVR Respiratory History: Reports: COPD, PE, SOB 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: Reports: GERD Genitourinary History: Reports: 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: Musculoskeletal History: Reports: Back Pain, Chronic, Other (See Below) Other Musculoskeletal History: shoulder pain chronic Neurological History: Reports: Other (See Below) Other Neuro History: guillian barre Psychiatric History: Reports: Addiction Hematologic History: Reports: Anticoagulation Therapy - Infectious Disease History Infectious Disease History: Reports: Chicken Pox, Measles, Mumps - Past Surgical History HEENT Surgical History: Reports: Cataract Surgery, LASIK, Tonsillectomy Cardiovascular Surgical History: Reports: Other (See Below) Other Cardiovascular Surgeries/Procedures: hypokalemia, Hypomagnesium GI Surgical History: Reports: None Female Surgical History: Reports: Tubal Ligation Neurological Surgical History: Reports: Lumbar Spine Social & Family History - Family History Family Medical History: No Pertinent Family History - Tobacco Use Tobacco Use Status *Q: Current Every Day Tobacco User Years of Tobacco use: 60 Packs/Tins Daily: 1 Second Hand Smoke Exposure: No - Caffeine Use Caffeine Use: Reports: Coffee - Living Situation & Occupation Living situation: Reports: , Alone, Other ([address] in [place], [place]. has 4 children.) Occupation: Retired ED ROS GENERAL - Review of Systems Review Of Systems: See Below Constitutional: Reports: No Symptoms HEENT: Reports: No Symptoms Respiratory: Reports: No Symptoms Cardiovascular: Reports: Palpitations (Occasional palpitations) Endocrine: Reports: No Symptoms GI/Abdominal: Reports: No Symptoms : Reports: No Symptoms Musculoskeletal: Reports: No Symptoms Skin: Reports: No Symptoms Neurological: Reports: No Symptoms Psychiatric: Reports: Anxiety Hematologic/Lymphatic: Reports: No Symptoms Immunologic: Reports: No Symptoms ED EXAM, GENERAL - Physical Exam Exam: See Below Exam Limited By: No Limitations General Appearance: Alert, No Apparent Distress, Anxious Eye Exam: Bilateral Eye: EOMI, PERRL Nose: Normal Inspection Throat/Mouth: Normal Inspection, Normal Oropharynx, Normal Voice, No Airway Compromise Head: Atraumatic, Normocephalic Neck: Normal Inspection, Supple. No: Lymphadenopathy (R), Lymphadenopathy (L) Respiratory/Chest: No Respiratory Distress, Decreased Breath Sounds (Mild decreased breath sounds in the bases), Wheezing (Scant inspiratory with expiratory wheezes and prolonged respirations) Cardiovascular: Normal Peripheral Pulses, Regular Rate, Rhythm, No JVD, No Murmur, Extra Beats (Occasional) Peripheral Pulses: 2+: Radial (L), Radial (R), Posterior Tibial (L), Posterior Tibial (R) GI/Abdominal: Normal Bowel Sounds, Soft, Non-Tender. No: Guarding, Rebound Extremities: Normal Inspection, No Pedal Edema Neurological: Alert, Oriented, Normal Cognition, No Motor/Sensory Deficits Psychiatric: Normal Affect, Anxious Skin Exam: Warm, Dry #1 Interpretation EKG Date: 07/31/21 Time: 21:35 Rhythm: NSR (Normal sinus rhythm with a rate of 84 bpm and an occasional premature atrial contraction.) Rate (Beats/Min): 84 [place]: RAD-Right [place] Deviation P-Wave: Present QRS: Normal ST-T: Normal QT: Prolonged Comparison: Change From Previous EKG (The EKG now shows normal sinus rhythm with occasional PACs as compared to previous EKG showing atrial flutter with 2-1 conduction done on 06/13/2021.) Course - Vital Signs Last Recorded V/S: Last Vital Signs Temp 36.2 C 07/31/21 21:20 Pulse 97 07/31/21 21:20 Resp 18 07/31/21 21:20 BP 120/54 L 07/31/21 21:20 Pulse Ox 89 L 07/31/21 21:20 - Orders/Labs/Meds Orders: Active Orders 24 hr Category Date Time Status EKG 12 Lead [EK] Routine Ther 07/31/21 21:19 Ordered Labs: Laboratory Tests 07/31/21 07/31/21 Range/Units 21:20 21:20 WBC 9.5 (4.5-11.0) K/uL RBC 5.62 H (3.30-5.50) M/uL Hgb 14.7 D (12.0-15.0) g/dL Hct 45.9 (36.0-48.0) % MCV 82 (80-98) fL MCH 26 L (27-31) pg MCHC 32 (32-36) % Plt Count 314 (150-400) K/uL Neut % (Auto) 59.0 (36-66) % Lymph % (Auto) 25.1 (24-44) % [place] % (Auto) 13.8 H (2-6) % Eos % (Auto) 1.4 L (2-4) % Baso % (Auto) 0.7 (0-1) % Sodium 143 (140-148) mmol/L Potassium 3.1 L (3.6-5.2) mmol/L Chloride 102 (100-108) mmol/L Carbon Dioxide 33 H (21-32) mmol/L Anion Gap 11.1 (5.0-14.0) mmol/L BUN 9 (7-18) mg/dL Creatinine 0.7 (0.6-1.0) mg/dL Est Cr Clr Drug Dosing 59.96 mL/min Estimated GFR (MDRD) > 60 (>60) Glucose 136 H (74-106) mg/dL Calcium 8.8 (8.5-10.1) mg/dL - Re-Assessments/Exams Free Text/Narrative Re-Assessment/Exam: 07/31/21 22:14 The patient arrived by EMS and was upset and concerned about having an elevated potassium. I had seen her in May when she presented with atrial flutter and reassured her that her EKG looked fine and that we would repeat the labs because it was likely that the potassium was elevated as a spurious finding due to hemolysis of the specimen. The patient is vitally stable and her exam is unchanged with the exception of her being in sinus rhythm now as compared to previously when she was in atrial flutter. Labs were obtained including CBC and basic metabolic profile. Her CBC shows a leukocyte count of 9.5, hemoglobin of 14.7 with hematocrit of 45.9 and a platelet count of 314,000. Her basic metabolic profile shows a sodium of 143, potassium is actually a little low at 3.1, chloride of 102, bicarbonate of 33 with a BUN of 9 and a creatinine of 0.7. Her glucose is 136 and a calcium of 8.8. So at this time it appears the patient does not have hyperkalemia. Her EKG was obtained and does not show any significant tenting of the T waves. She is in sinus rhythm with an occasional premature atrial contraction. I did review the conversation with the patient from the [facility] chart. It is noted that at 721 the results were reviewed and found a potassium of 6.9 that was slightly hemolyzed. The labs were drawn at 1:45 PM in [place] called from the [facility] reporting that the potassium was 6.9. The ordering doctor, Junie freedman was not available to take the report but they did call it to the on- call doctor, Kinga parks at the time. He reviewed the chart and found the patient be on spironolactone and Lasix without any potassium supplement and saw that the Lasix was increased at the appointment prior. His recommendation was to send the patient to the ER. At 8 PM this was conveyed to the patient who was reluctant to come in because of the lack of availability to be able to get home. The patient did call EMS and arrived by ambulance. 07/31/21 22:23 the patient is actually mildly hypokalemic but I do not think she needs replacement as she is at 3.1 and a matter of a banana or some orange juice will bring this up. At this time, the patient is discharged from ER but will spend the night in the room until somebody can take her back to her detention apartment in [place] in the morning. Patient was given an sandwich and some chips so she had some nutrition as she did not eat supper tonight. 07/31/21 22:27 an additional problem is that the patient was so scared about have been told that she was hyperkalemic that she left her apartment with the keys in it and is now locked out of her apartment. Departure - Departure Time of Disposition: 22:24 Disposition: Home, Self-Care 01 Clinical Impression: Hypokalemia - Discharge Information Instructions: Hypokalemia Referrals: PCP,None [Primary Care Provider] - Care Plan Goals: Unfortunately, your labs from [facility] gave a spurious reading of your potassium due to the blood being hemolyzed. The reported value of 6.9 is actually 3.1 which is slightly low. I would recommend a little bit of orange juice or a couple of bananas which will bring it back up into the normal range. I am sorry for the inconvenience of having to come by ambulance to the emergency room but I am glad to see you again and hope that you have a comfortable night until he can arrange a return back home tomorrow morning. As always, we are happy to see you and we will do what we can to keep you comfortable and well. Sepsis Event Note (ED) - Evaluation Sepsis Screening Result: No Definite Risk - Focused Exam Vital Signs: Vital Signs Temp Pulse Resp BP Pulse Ox 07/31/21 21:20 36.2 C 97 18 120/54 L 89 L 07/31/21 21:19 36.2 C 97 18 120/54 L 89 L - Problem List & Annotations (1) Hypokalemia SNOMED Code(s): 49634913 Code(s): E87.6 - HYPOKALEMIA Status: Acute Priority: Low Current Visit: Yes - Problem List Review Problem List Initiated/Reviewed/Updated: Yes - My Orders Last 24 Hours: My Active Orders 07/31/21 21:19 EKG 12 Lead [EK] Routine - Assessment/Plan Last 24 Hours: My Active Orders 07/31/21 21:19 EKG 12 Lead [EK] Routine
== END 2021-08-01 10:10 | disposition home or self-care (01) ==
LOC: JP.ED 21:10
DX: E87.6 Hypokalemia (principal); I48.91 Unspecified atrial fibrillation; I50.9 Heart failure, unspecified; J44.9 Chronic obstructive pulmonary disease, unspecified; K21.9 Gastro-esophageal reflux disease without esophagitis; Z72.0 Tobacco use; Z79.899 Other long term (current) drug therapy
CPT/HCPCS: 36415; 80048; 85025; 93005; 99285-25

== ENCOUNTER 2021-08-18 03:15 | Emergency (ER) | payer MEDICARE, OTHER ==
[2021-08-18] MEDS ORDERED: Sodium Chloride 0.9% 10 ML Syringe FLUSH PRN (03:30)
[2021-08-18] MEDS ORDERED: Albuterol/Ipratropium 3.0-0.5 MG/3 ML Neb Soln NEB ONE (03:33)
[2021-08-18] MEDS ORDERED: methylPREDNISolone Sodium Succinate 125 MG/2 ML SDV IVPUSH ONE (03:33)
--- NOTE | 2021-08-18 03:42 | EDM.PDOC ---
ED HPI GENERAL MEDICAL PROBLEM - General Chief Complaint: Respiratory Problem Stated Complaint: MEDICAL VIA NORTH Time Seen by Provider: 08/18/21 03:19 Source of Information: Reports: Patient, EMS History Limitations: Reports: No Limitations - History of Present Illness INITIAL COMMENTS - FREE TEXT/NARRATIVE: Patient presents to the emergency room today via EMS secondary to shortness of breath and reported chest pain chest pressure she points to the middle of her chest increasing over the last 2 days. On EMS arrival they report the pulse oximetry was 79 to 82% patient was not wearing her home oxygen they did place her on oxygen 4 L and were able to get her up to 93% also given by EMS was with duo nebulizer nitroglycerin and aspirin. 25 mg. There is no change in her c hest pressure discomfort with nitroglycerin but respiratory status did improve after receiving duo nebulizer. It is reported the patient is not using her home medications she does report that she only wears her oxygen in the daytime and she states "that works for me for the last 2 to 3 years now) patient does smoke she has a very strong smell of smoke on her person and I was wearing N95 mask she states that she only smokes 1/2-3/4 a pack a day but I find this unlikely. Patient also reports a headache intermittent bloody noses denies any fevers chills she does have a cough that she reports is being intermittently productive and body aches she denies having received her influenza or Covid immunization she states that she does have chronic pedal edema and this is currently at her baseline PMH/Meds--reviewed in EMR, per EMS she has home nebulizer and meds but does not report using NKDA Tob--1/2-3/4ppd reported but this physician believes she smoke much more as she has very strong cig smoke on her person EtOH/Drugs--denies Patient denies having had COVID infection nor has she received her COVID immunization Onset: Today - Related Data Allergies Allergy/AdvReac Type Severity Reaction Status Date / Time No Known Allergies Allergy Verified 08/18/21 04:23 Home Meds: Home Meds Furosemide 20 mg PO DAILY 01/27/21 [History] Omeprazole 40 mg PO DAILY 01/27/21 [History] Sucralfate [Carafate] 1 gm PO BID 01/27/21 [History] Ferrous Sulfate 325 mg PO DAILY #30 tablet 06/12/21 [Rx] Ferrous Sulfate 1 tab PO DAILY 08/18/21 [History] Spironolactone [Aldactone] 1 tab PO DAILY 08/18/21 [History] Past Medical History HEENT History: Reports: Cataract, Impaired Vision Cardiovascular History: Reports: Afib, Heart Failure Other Cardiovascular History: afib with RVR Respiratory History: Reports: COPD, PE, SOB 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: Reports: GERD Genitourinary History: Reports: 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: Musculoskeletal History: Reports: Back Pain, Chronic, Other (See Below) Other Musculoskeletal History: shoulder pain chronic Neurological History: Reports: Other (See Below) Other Neuro History: guillian barre Psychiatric History: Reports: Addiction Hematologic History: Reports: Anticoagulation Therapy - Infectious Disease History Infectious Disease History: Reports: Chicken Pox, Measles, Mumps - Past Surgical History HEENT Surgical History: Reports: Cataract Surgery, LASIK, Tonsillectomy Cardiovascular Surgical History: Reports: Other (See Below) Other Cardiovascular Surgeries/Procedures: hypokalemia, Hypomagnesium GI Surgical History: Reports: None Female Surgical History: Reports: Tubal Ligation Neurological Surgical History: Reports: Lumbar Spine Social & Family History - Family History Family Medical History: No Pertinent Family History - Caffeine Use Caffeine Use: Reports: Coffee - Living Situation & Occupation Living situation: Reports: , Alone, Other ([address] in [place], [place]. has 4 children.) Occupation: Retired ED ROS GENERAL - Review of Systems Review Of Systems: Comprehensive ROS is negative, except as noted in HPI. Constitutional: Reports: No Symptoms HEENT: Reports: Nosebleed Respiratory: Reports: Shortness of Breath, Wheezing, Cough, Sputum Cardiovascular: Reports: Chest Pain GI/Abdominal: Reports: No Symptoms : Reports: No Symptoms Musculoskeletal: Reports: No Symptoms Skin: Reports: No Symptoms Neurological: Reports: No Symptoms ED EXAM, GENERAL - Physical Exam Exam: See Below Exam Limited By: No Limitations General Appearance: Alert, WD/WN, No Apparent Distress Eye Exam: Bilateral Eye: EOMI, Normal Inspection, PERRL Ears: Normal External Exam, Hearing Grossly Normal Nose: Normal Inspection Throat/Mouth: Normal Inspection, Normal Lips, Normal Voice, No Airway Compromise Head: Atraumatic, Normocephalic Neck: Normal Inspection, Supple, Non-Tender, Full Range of Motion Respiratory/Chest: Chest Non-Tender, Other (decreased air movement throughout, no gross wheeze/rhonchi at this time) Cardiovascular: Normal Peripheral Pulses, Regular Rate, Rhythm, No Murmur, Tachycardia. No: No Edema (2+ pedal edema) Peripheral Pulses: 2+: Radial (L), Radial (R) GI/Abdominal: Normal Bowel Sounds, Soft, Tender (generalized). No: Guarding, Rigid, Rebound (Female) Exam: Deferred Rectal (Female) Exam: Deferred Back Exam: Normal Inspection Extremities: Normal Inspection, Normal Range of Motion, Pedal Edema, Slow Capillary Refill (cap refill 3-5 seconds) Neurological: Alert, Oriented, Normal Cognition, No Motor/Sensory Deficits Psychiatric: Normal Affect, Normal Mood Skin Exam: Warm, Dry, Intact, Normal Color #1 Interpretation EKG Date: 08/18/21 Time: 03:23 (read at 0325, no STEMI) Rhythm: NSR Rate (Beats/Min): 105 [place]: RAD-Right [place] Deviation P-Wave: Present (IN interval 144, left atrial enlargement) QRS: Normal (QRS 81) ST-T: Normal QT: Normal (QT/QTc 357/472) Course - Vital Signs Text/Narrative:: 0325--discussed with patient plan of care today in the emergency room to include labs radiology as well as Solu-Medrol for her COPD exacerbation. She declined Solu-Medrol/prednisone she states that she does not like the way it makes her feel she takes medications that she has at home and this is what works for her. Orders were placed for this will allow her to decline especially for nursing to dayna is declined medication 0515--chest x-ray was reviewed on preliminary reading was noted for no acute process. Labs have been reviewed noted for decreased magnesium 1.6% elevated total bili at 2 AST/ALT are elevated at 83/89 and ALT is also elevated at 930. With a negative flu and Covid testing her troponin was negative at less than 0.017. Will replace magnesium patient did except for nursing documentation Solu-Medrol for COPD exacerbation. And will be to discharge once magnesium replacement is completed outpatient follow-up regarding her elevated total bili AST ALT and ALP as she will possibly need a right upper quadrant ultrasound--states that this has already been discussed to her by her primary care provider and she will discuss again ER follow-up appointment. Also send patient home with a prednisone burst as well as instructions to use her duo nebulizer every 4 hours and to wear oxygen therapy at all times. Smoking cessation was strongly encouraged especially in light of her need for continuous oxygen therapy Last Recorded V/S: Last Vital Signs Temp 97.0 F 08/18/21 03:21 Pulse 101 H 08/18/21 03:21 Resp 23 H 08/18/21 03:21 BP 112/61 08/18/21 03:21 Pulse Ox 94 L 08/18/21 04:08 - Orders/Labs/Meds Orders: Active Orders 24 hr Category Date Time Status Oxygen Therapy Adult [Oxygen Therapy, ED] [RC] Care 08/18/21 03:33 Active ASDIRECTED Peripheral IV Care [RC] . DIRECTED Care 08/18/21 03:32 Active Pulse Oximetry [RC] CONTINUOUS Care 08/18/21 03:31 Active RT Aerosol Therapy [RC] ASDIRECTED Care 08/18/21 03:33 Active Up With Assistance [RC] ASDIRECTED Care 08/18/21 03:30 Active Vital Signs [RC] PER UNIT ROUTINE Care 08/18/21 03:30 Active Clear Liquid Diet [DIET] Diet 08/18/21 Breakfast Active Chest 1V Frontal [CR] Urgent Exams 08/18/21 03:30 Taken Sodium Chloride 0.9% [Saline Flush] Med 08/18/21 03:30 Active 10 ml FLUSH ASDIRECTED PRN Isolation [COMM] Stat Oth 08/18/21 03:33 Ordered Peripheral IV Insertion Adult [OM.PC] Urgent Oth 08/18/21 03:30 Ordered EKG 12 Lead [EK] Urgent Ther 08/18/21 03:30 Ordered Medication Orders Sodium Chloride (Sodium Chloride 0.9% 10 Ml Syringe) 10 ml FLUSH ASDIRECTED PRN PRN Reason: Keep Vein Open Last Admin: 08/18/21 04:39 Dose: 10 ml Documented by: ALONZO Labs: Laboratory Tests 08/18/21 08/18/21 08/18/21 Range/Units 03:30 03:30 04:05 WBC 13.4 H (4.5-11.0) K/uL RBC 5.10 (3.30-5.50) M/uL Hgb 14.3 (12.0-15.0) g/dL Hct 44.1 (36.0-48.0) % MCV 87 (80-98) fL MCH 28 (27-31) pg MCHC 32 (32-36) % Plt Count 340 (150-400) K/uL Neut % (Auto) 78.9 H (36-66) % Lymph % (Auto) 6.3 L (24-44) % [place] % (Auto) 13.7 H (2-6) % Eos % (Auto) 0.7 L (2-4) % Baso % (Auto) 0.4 (0-1) % Sodium 139 L (140-148) mmol/L Potassium 3.6 (3.6-5.2) mmol/L Chloride 99 L (100-108) mmol/L Carbon Dioxide 32 (21-32) mmol/L Anion Gap 11.6 (5.0-14.0) mmol/L BUN 10 (7-18) mg/dL Creatinine 0.6 (0.6-1.0) mg/dL Est Cr Clr Drug Dosing TNP Estimated GFR (MDRD) > 60 (>60) Glucose 129 H (74-106) mg/dL Calcium 9.0 (8.5-10.1) mg/dL Magnesium 1.6 L (1.8-2.4) mg/dL Total Bilirubin 2.0 H D (0.2-1.0) mg/dL AST 83 H D (15-37) U/L ALT 89 H (12-78) U/L Alkaline Phosphatase 930 H D (46-116) U/L Troponin I < 0.017 (0.000-0.056) ng/mL Total Protein 6.3 L (6.4-8.2) g/dL Albumin 2.9 L (3.4-5.0) g/dL Globulin 3.4 (2.3-3.5) g/dL Albumin/Globulin Ratio 0.9 L (1.2-2.2) Influenza Type A RNA Negative (NEGATIVE) Influenza Type B RNA Negative (NEGATIVE) SARS-CoV-2 RNA (MARLENE) Negative (NEGATIVE) Meds: Medications Generic Name Dose Route Start Last Admin Trade Name Freq PRN Reason Stop Dose Admin Sodium Chloride 10 ml 08/18/21 03:30 08/18/21 04:39 Sodium Chloride 0.9% 10 Ml Syringe FLUSH 10 ml ASDIRECTED PRN Administration Keep Vein Open Discontinued Medications Generic Name Dose Route Start Last Admin Trade Name Luisa PRN Reason Stop Dose Admin Albuterol/Ipratropium 3 ml 08/18/21 03:33 08/18/21 04:02 Albuterol/Ipratropium 3.0-0.5 Mg/3 Ml Neb Soln NEB 08/18/21 03:34 3 ml ONETIME ONE Administration Methylprednisolone Sodium Succinate 125 mg 08/18/21 03:33 08/18/21 04:02 Methylprednisolone Sodium Succinate 125 Mg/2 Ml Sdv IVPUSH 08/18/21 03:34 125 mg ONETIME ONE Administration Departure - Departure Time of Disposition: 07:30 Disposition: Home, Self-Care 01 Condition: Good Clinical Impression: COPD with exacerbation, Chronic respiratory failure with hypoxia, on home oxygen therapy, Tobacco use disorder, continuous, Hypomagnesemia, Hyperbilirubinemia, Elevated LFTs - Discharge Information *PRESCRIPTION DRUG MONITORING PROGRAM REVIEWED*: Not Applicable *COPY OF PRESCRIPTION DRUG MONITORING REPORT IN PATIENT MALIKA: Not Applicable Instructions: Hypomagnesemia, Steps to Quit Smoking, [id number], Chronic Obstructive Pulmonary Disease Exacerbation, [id number] Referrals: PCP,None [Primary Care Provider] - Forms: ED Department Discharge Additional Instructions: As discussed your Covid and influenza testing were negative today in the emergency room. It is strongly encouraged that you consider obtaining your Covid immunization if you have not done so already secondary to your chronic medical conditions include COPD and chronic home oxygen making you at high risk for poor outcome should you contract Covid It is recommended that you use your duo nebulizer every 4 hours as currently prescribed as well as wear your oxygen at all times. This would mean that you would not be able to smoke it is strongly encouraged that you quit smoking but if you are not able to and must have a cigarette please remember to turn off your oxygen and/or remove it and go to another room when you are smoking You have been provided a prescription for prednisone is dosed as a taper in you will take 3 tablets for 3 days followed by 2 tablets for 3 days followed by 1 tablet for 3 days before stopping use It was discussed that you follow-up with your primary care provider/family physician regarding noted elevated bilirubin as well as liver function test. I did discuss my recommendation for an ultrasound of your liver and gallbladder. You indicated that this had previously been discussed with you by your primary care provider and you would follow-up with her in regards to this concern Sepsis Event Note (ED) - Focused Exam Vital Signs: Vital Signs Temp Pulse Resp BP Pulse Ox Pulse Ox 08/18/21 04:08 94 L 08/18/21 03:21 97.0 F 101 H 23 H 112/61 95 - My Orders Last 24 Hours: My Active Orders 08/18/21 03:30 Up With Assistance [RC] ASDIRECTED Vital Signs [RC] PER UNIT ROUTINE Chest 1V Frontal [CR] Urgent Sodium Chloride 0.9% [Saline Flush] 10 ml FLUSH ASDIRECTED PRN Peripheral IV Insertion Adult [OM.PC] Urgent EKG 12 Lead [EK] Urgent 08/18/21 03:31 Pulse Oximetry [RC] CONTINUOUS 08/18/21 03:32 Peripheral IV Care [RC] . DIRECTED 08/18/21 03:33 Oxygen Therapy Adult [Oxygen Therapy, ED] [RC] ASDIRECTED RT Aerosol Therapy [RC] ASDIRECTED Isolation [COMM] Stat 08/18/21 Breakfast Clear Liquid Diet [DIET] - Assessment/Plan Last 24 Hours: My Active Orders 08/18/21 03:30 Up With Assistance [RC] ASDIRECTED Vital Signs [RC] PER UNIT ROUTINE Chest 1V Frontal [CR] Urgent Sodium Chloride 0.9% [Saline Flush] 10 ml FLUSH ASDIRECTED PRN Peripheral IV Insertion Adult [OM.PC] Urgent EKG 12 Lead [EK] Urgent 08/18/21 03:31 Pulse Oximetry [RC] CONTINUOUS 08/18/21 03:32 Peripheral IV Care [RC] . DIRECTED 08/18/21 03:33 Oxygen Therapy Adult [Oxygen Therapy, ED] [RC] ASDIRECTED RT Aerosol Therapy [RC] ASDIRECTED Isolation [COMM] Stat 08/18/21 Breakfast Clear Liquid Diet [DIET]
[2021-08-18 04:29] LABS: CORONAVIRUS COVID-19 NAA NEGATIVE (NEGATIVE)
[2021-08-18] MEDS ORDERED: Magnesium Sulfate/Water 2 GM in Premix Bag 1 BAG IV ONE (05:17)
--- NOTE | 2021-08-18 09:09 | CR ---
CHEST: Portable 08/18/2021 at 4:02 AM CLINICAL HISTORY:Chest pressure, SOB, COPD exacerbation COMPARISON:May 2021 FINDINGS: The heart size, pulmonary vascularity and hilar structures are normal. No infiltrate effusion or pneumothorax is seen. There is some mild interstitial prominence in the lung bases which may be chronic IMPRESSION: No acute cardiopulmonary process.
== END 2021-08-18 09:24 | disposition home or self-care (01) ==
LOC: JP.ED 03:15
DX: J44.1 Chronic obstructive pulmonary disease with (acute) exacerbation (principal); J96.11 Chronic respiratory failure with hypoxia; E83.42 Hypomagnesemia; R79.89 Other specified abnormal findings of blood chemistry; E80.6 Other disorders of bilirubin metabolism; K21.9 Gastro-esophageal reflux disease without esophagitis; I48.91 Unspecified atrial fibrillation; F17.210 Nicotine dependence, cigarettes, uncomplicated; Z99.81 Dependence on supplemental oxygen; Z79.899 Other long term (current) drug therapy; Z20.822 Contact with and (suspected) exposure to COVID-19
CPT/HCPCS: 0240U; 36415; 71045; 80053; 83735; 84484; 85025; 93005; 94640; 96365; 96366; 96375; 99285; J2930; J3475; J7620-GY

== ENCOUNTER 2021-10-19 12:02 | Inpatient (IN) | payer MEDICARE, OTHER ==
[2021-10-19 13:26] LABS: CORONAVIRUS COVID-19 NAA NEGATIVE (NEGATIVE)
[2021-10-19] MEDS ORDERED: Meropenem 1 GM in Sodium Chloride 0.9% 100 ML IV ONE (15:40)
[2021-10-19] MEDS ORDERED: Albuterol 0.083% 2.5 MG/3 ML Neb Soln NEB PRN (16:33)
[2021-10-19] MEDS ORDERED: oxyCODONE 5 MG Tab PO PRN (16:33)
[2021-10-19] MEDS ORDERED: Acetaminophen 325 MG Tab PO PRN (16:33)
[2021-10-19] MEDS ORDERED: Sodium Chloride 0.9% 10 ML Syringe FLUSH PRN (16:33)
[2021-10-19] MEDS ORDERED: Polyethylene Glycol 3350 Powder 17 GM Packet PO PRN (16:33)
[2021-10-19] MEDS: Nicotine 14 MG/24 Hr Patch TRDERM SCH (17:15)
[2021-10-19] MEDS: Sodium Chloride 0.9% 1,000 ML IV SCH (21:58)
[2021-10-19] MEDS: Sucralfate 1 GM Tab PO SCH (21:59)
[2021-10-19] MEDS: Ondansetron 4 MG/2 ML SDV IV PRN (22:03)
[2021-10-20] MEDS: Meropenem 1 GM in Sodium Chloride 0.9% 100 ML IV SCH ×4 (00:29→23:14)
[2021-10-20] MEDS: Sodium Chloride 0.9% 1,000 ML IV SCH (05:56)
[2021-10-20] MEDS: Pantoprazole 40 MG Tab.CR PO SCH (07:24)
[2021-10-20] MEDS: Spironolactone 25 MG Tab PO SCH (08:43)
[2021-10-20] MEDS: Magnesium Sulfate/Water 2 GM in Premix Bag 1 BAG IV SCH ×3 (08:44→20:12)
[2021-10-20] MEDS: Ferrous Sulfate 325 MG Tab PO SCH (08:44)
[2021-10-20] MEDS: Sucralfate 1 GM Tab PO SCH ×2 (08:44→20:13)
[2021-10-20] MEDS: Ondansetron 4 MG/2 ML SDV IV PRN (11:37)
[2021-10-20] MEDS ORDERED: Sodium Chloride 0.9% 1,000 ML IV SCH (13:00)
[2021-10-20] MEDS: Nicotine 14 MG/24 Hr Patch TRDERM SCH (16:52)
[2021-10-21] MEDS ORDERED: Potassium Phosphates 60 MMOLE in Sodium Chloride 0.9% 250 ML IV SCH (07:00)
[2021-10-21] MEDS: Albuterol/Ipratropium 3.0-0.5 MG/3 ML Neb Soln NEB SCH ×5 (07:12→23:32)
[2021-10-21] MEDS: Pantoprazole 40 MG Tab.CR PO SCH (07:39)
[2021-10-21] MEDS: Meropenem 1 GM in Sodium Chloride 0.9% 100 ML IV SCH ×3 (07:41→23:31)
[2021-10-21] MEDS: Ferrous Sulfate 325 MG Tab PO SCH (09:09)
[2021-10-21] MEDS: Spironolactone 25 MG Tab PO SCH (09:09)
[2021-10-21] MEDS: Sucralfate 1 GM Tab PO SCH ×2 (09:10→21:06)
[2021-10-21] MEDS: Potassium Phos in 0.9 % NaCl 15 MMOL in Premix Bag 1 BAG IV SCH ×8 (09:50→21:05)
[2021-10-21] MEDS: Nicotine 14 MG/24 Hr Patch TRDERM SCH (16:31)
[2021-10-22] MEDS: Albuterol/Ipratropium 3.0-0.5 MG/3 ML Neb Soln NEB SCH ×6 (03:00→22:42)
[2021-10-22] MEDS: Pantoprazole 40 MG Tab.CR PO SCH (07:11)
[2021-10-22] MEDS: Meropenem 1 GM in Sodium Chloride 0.9% 100 ML IV SCH ×3 (07:30→23:50)
[2021-10-22] MEDS: Sucralfate 1 GM Tab PO SCH ×2 (08:15→20:21)
[2021-10-22] MEDS: Ferrous Sulfate 325 MG Tab PO SCH (08:15)
[2021-10-22] MEDS: Spironolactone 25 MG Tab PO SCH (08:15)
[2021-10-22] MEDS: Nicotine 14 MG/24 Hr Patch TRDERM SCH (16:44)
[2021-10-23] MEDS: Albuterol/Ipratropium 3.0-0.5 MG/3 ML Neb Soln NEB SCH ×6 (01:24→18:09)
[2021-10-23] MEDS: Pantoprazole 40 MG Tab.CR PO SCH (07:28)
[2021-10-23] MEDS: Meropenem 1 GM in Sodium Chloride 0.9% 100 ML IV SCH ×2 (07:28→15:57)
[2021-10-23] MEDS: Sucralfate 1 GM Tab PO SCH ×2 (07:29→08:09)
[2021-10-23] MEDS: Ferrous Sulfate 325 MG Tab PO SCH ×2 (07:29→08:10)
[2021-10-23] MEDS: Spironolactone 25 MG Tab PO SCH ×2 (07:29→08:09)
[2021-10-23] MEDS ORDERED: Furosemide 20 MG/2 ML VIAL IVPUSH ONE (07:30)
[2021-10-23] MEDS: Nicotine 14 MG/24 Hr Patch TRDERM SCH (18:08)
== END 2021-10-23 20:10 | DRG 445 ==
LOC: JP.ED 12:02 → JP.MS 16:17
PROVIDERS: ADMIT Hospitalist; ATTEND Hospitalist
DX: K80.42 Calculus of bile duct with acute cholecystitis without obstruction (principal); J96.11 Chronic respiratory failure with hypoxia; J44.9 Chronic obstructive pulmonary disease, unspecified; J44.0 Chronic obstructive pulmonary disease with (acute) lower respiratory infection; J40 Bronchitis, not specified as acute or chronic; K81.9 Cholecystitis, unspecified; H54.7 Unspecified visual loss; I48.91 Unspecified atrial fibrillation; I50.9 Heart failure, unspecified; K21.9 Gastro-esophageal reflux disease without esophagitis; Z99.81 Dependence on supplemental oxygen; G89.29 Other chronic pain; Z86.19 Personal history of other infectious and parasitic diseases; Z90.89 Acquired absence of other organs; Z98.51 Tubal ligation status; Z98.49 Cataract extraction status, unspecified eye; M54.9 Dorsalgia, unspecified; F17.210 Nicotine dependence, cigarettes, uncomplicated; Z79.01 Long term (current) use of anticoagulants; Z79.899 Other long term (current) drug therapy; Z20.822 Contact with and (suspected) exposure to COVID-19
CPT/HCPCS: 0241U; 36415; 71046; 74181; 76705; 80053; 83605; 83690; 83735; 83880; 84100; 85025; 85027; 94640; 96374; 99285; A9270-GY; J1940; J2185; J2405; J3475; J7030; J7620-GY

== ENCOUNTER 2021-10-29 14:26 | Observation (INO) | payer MEDICARE, OTHER ==
[2021-10-30 08:35] LABS: CORONAVIRUS COVID-19 NAA NEGATIVE (NEGATIVE)
[2021-10-30] MEDS ORDERED: Melatonin 3 MG Tab PO PRN (12:01)
[2021-10-30] MEDS ORDERED: Ondansetron 4 MG/2 ML SDV IV PRN (12:01)
[2021-10-30] MEDS ORDERED: Acetaminophen 325 MG Tab PO PRN (12:01)
[2021-10-30] MEDS ORDERED: LORazepam 2 MG/ML SDV IVPUSH PRN (12:01)
[2021-10-30] MEDS ORDERED: Magnesium Hydroxide 400 MG/5 ML Susp 30 ML Cup PO PRN (12:01)
[2021-10-30] MEDS ORDERED: Albuterol 0.083% 2.5 MG/3 ML Neb Soln NEB PRN (12:01)
[2021-10-30] MEDS ORDERED: Ondansetron 4 MG Tab.DIS PO PRN (12:01)
[2021-10-30] MEDS ORDERED: HYDROmorphone 1 MG/ML Syringe IVPUSH PRN (12:01)
[2021-10-30] MEDS ORDERED: oxyCODONE 5 MG Tab PO PRN (12:01)
[2021-10-30] MEDS ORDERED: Sodium Chloride 0.9% 10 ML Syringe FLUSH PRN (12:01)
[2021-10-30] MEDS: Ampicillin/Sulbactam Na 1.5 GM in Sodium Chloride 0.9% 50 ML IV SCH ×2 (14:22→18:07)
[2021-10-30] MEDS: Lactobacillus Rhamnosus GG (Probiotic) Cap PO SCH (21:02)
[2021-10-30] MEDS: Sucralfate 1 GM Tab PO SCH (21:02)
[2021-10-31] MEDS: Ampicillin/Sulbactam Na 1.5 GM in Sodium Chloride 0.9% 50 ML IV SCH ×2 (00:34→05:30)
[2021-10-31] MEDS ORDERED: Bupivacaine 0.5%/EPINEPHrine 1:200,000 50 ML MDV ONE (07:17)
[2021-10-31] MEDS ORDERED: Albuterol/Ipratropium 3.0-0.5 MG/3 ML Neb Soln INH ONE (07:30)
[2021-10-31] MEDS ORDERED: Scopolamine 1.5 MG Transdermal Patch ONE (07:40)
[2021-10-31] MEDS ORDERED: Neostigmine Methylsulfate 1 MG/ML 5 ML Syringe ONE (07:40)
[2021-10-31] MEDS ORDERED: Propofol 200 MG/20 ML SDV ONE (07:40)
[2021-10-31] MEDS ORDERED: Succinylcholine 200 MG/10 ML MDV ONE (07:40)
[2021-10-31] MEDS ORDERED: Ondansetron 4 MG/2 ML SDV ONE (07:40)
[2021-10-31] MEDS ORDERED: Rocuronium 50 MG/5 ML Vial ONE (07:40)
[2021-10-31] MEDS ORDERED: Dexamethasone 4 MG/ML SDV ONE (07:40)
[2021-10-31] MEDS ORDERED: Glycopyrrolate 0.2 MG/ML 5 ML MDV ONE (07:40)
[2021-10-31] MEDS ORDERED: fentaNYL 250 MCG/5 ML SDV ONE (07:41)
[2021-10-31] MEDS ORDERED: cefOXitin 2 GM in Sodium Chloride 0.9% 50 ML IV ONE (08:00)
[2021-10-31] MEDS ORDERED: Ketamine 16 MG in Sodium Chloride 0.9% 19.84 ML IV SCH (08:00)
[2021-10-31] MEDS ORDERED: Ketamine 500 MG/5 ML MDV IV SCH (08:00)
[2021-10-31] MEDS ORDERED: Ropivacaine 30 ML, dexAMETHasone 8 MG, EPINEPHrine 0.4 MG, Sodium Chloride 0.9% 47.6 ML NERVRT SCH ×4 (08:00)
[2021-10-31] MEDS ORDERED: fentaNYL 100 MCG/2 ML SDV IVPUSH ONE (09:31)
[2021-10-31] MEDS: Lactobacillus Rhamnosus GG (Probiotic) Cap PO SCH ×2 (10:13→20:25)
[2021-10-31] MEDS: Pantoprazole 40 MG Tab.CR PO SCH (10:13)
[2021-10-31] MEDS: Sucralfate 1 GM Tab PO SCH ×2 (10:13→20:25)
[2021-10-31] MEDS: Furosemide 20 MG Tab PO SCH (10:13)
[2021-10-31] MEDS: Spironolactone 25 MG Tab PO SCH (10:14)
[2021-10-31] MEDS ORDERED: Dextrose 5%-Lactated Ringers 1,000 ML IV SCH (10:15)
[2021-10-31] MEDS: HYDROmorphone 2 MG Tab PO PRN ×2 (11:15→18:28)
[2021-10-31] MEDS: Acetaminophen 325 MG Tab PO SCH ×3 (11:55→23:11)
[2021-11-01] MEDS: Acetaminophen 325 MG Tab PO SCH ×2 (05:18→10:10)
[2021-11-01] MEDS: Spironolactone 25 MG Tab PO SCH (09:24)
[2021-11-01] MEDS: Lactobacillus Rhamnosus GG (Probiotic) Cap PO SCH (09:24)
[2021-11-01] MEDS: Pantoprazole 40 MG Tab.CR PO SCH (09:25)
[2021-11-01] MEDS: Furosemide 20 MG Tab PO SCH (09:25)
[2021-11-01] MEDS: Sucralfate 1 GM Tab PO SCH (09:25)
== END 2021-11-01 11:03 | disposition home health service (06) ==
LOC: JP.ED 14:26 → JP.MS 10-30 10:47
PROVIDERS: ADMIT Internal Medicine; ATTEND Internal Medicine
DX: K80.12 Calculus of gallbladder with acute and chronic cholecystitis without obstruction (principal); K76.0 Fatty (change of) liver, not elsewhere classified; R16.0 Hepatomegaly, not elsewhere classified; J44.9 Chronic obstructive pulmonary disease, unspecified; I10 Essential (primary) hypertension; I48.92 Unspecified atrial flutter; E83.42 Hypomagnesemia; F17.210 Nicotine dependence, cigarettes, uncomplicated; K21.9 Gastro-esophageal reflux disease without esophagitis; Z79.899 Other long term (current) drug therapy; Z98.890 Other specified postprocedural states
CPT/HCPCS: 0241U; 36415; 47379; 47562; 70450; 80053; 83690; 83735; 83880; 84100; 85025; 85027; 93005; 96365; 96375; 97116; 97162; 97535; 99285; A9270; G0378; J0171; J0295; J0330; J0694; J1100; J2405; J2704; J2710; J2795; J3010; J3490; 88304; 88307; 88313; J7620-GY

== ENCOUNTER 2022-01-29 08:23 | Day surgery (SDC) | payer MEDICARE, OTHER ==
[~2022-01-29 08:23] MED LIST: Midazolam 1 MG/ML 2 ML SDV ONE; Propofol 200 MG/20 ML SDV ONE; fentaNYL 100 MCG/2 ML SDV ONE
[2022-01-29] MEDS: Bupivacaine 0.5% 50 ML MDV ONE ×2 (08:42→11:50)
[2022-01-29] MEDS: Lidocaine 1% with EPINEPHrine 1:100,000 50 ML MDV ONE ×2 (08:43→11:50)
[2022-01-29] MEDS ORDERED: Dextrose 5%-Lactated Ringers 1,000 ML IV SCH (09:00)
[2022-01-29] MEDS ORDERED: Meropenem 500 MG in Sodium Chloride 0.9% 50 ML IV ONE (09:30)
[2022-01-29] MEDS ORDERED: Albuterol/Ipratropium 3.0-0.5 MG/3 ML Neb Soln NEB ONE (09:30)
== END 2022-01-29 13:12 | disposition home or self-care (01) ==
LOC: JP.SDS 08:23
PROVIDERS: ATTEND Surgery
DX: L72.0 Epidermal cyst (principal); Z01.812 Encounter for preprocedural laboratory examination; Z20.822 Contact with and (suspected) exposure to COVID-19
CPT/HCPCS: C9803; J2185; J2250; J2704; J3010; J3490; J7121; J7620; U0002

== ENCOUNTER 2022-03-22 14:17 | Emergency (ER) | payer MEDICARE, OTHER ==
[2022-03-22] MEDS ORDERED: Nitroglycerin 0.4 MG Tab.SL SL STA (14:40)
[2022-03-22] MEDS ORDERED: Sodium Chloride 0.9% 10 ML Syringe FLUSH PRN (14:40)
[2022-03-22] MEDS ORDERED: Furosemide 40 MG/4 ML VIAL IVPUSH ONE (14:41)
[2022-03-22 15:28] LABS: ESTIMATED GFR 76 mL/min (>60); TROPONIN I HIGH SENSITIVITY 13.8 pg/mL (<=60.3)
== END 2022-03-22 17:09 | disposition home or self-care (01) ==
LOC: JP.ED 14:17
DX: I11.0 Hypertensive heart disease with heart failure (principal); I50.9 Heart failure, unspecified; J44.9 Chronic obstructive pulmonary disease, unspecified; K21.9 Gastro-esophageal reflux disease without esophagitis; F17.210 Nicotine dependence, cigarettes, uncomplicated; Z79.899 Other long term (current) drug therapy
CPT/HCPCS: 36415; 71046; 80053; 83880; 84484; 85025; 93005; 93010; 96374; 99283; 99284-25; A9270-GY; J1940; J3490

== ENCOUNTER 2022-04-07 13:38 | Emergency (ER) | payer MEDICARE, OTHER ==
[2022-04-07] MEDS ORDERED: Sodium Chloride 0.9% 10 ML Syringe FLUSH PRN (14:27)
[2022-04-07] MEDS ORDERED: Furosemide 40 MG/4 ML VIAL IVPUSH ONE (14:28)
[2022-04-07 15:09] LABS: ESTIMATED GFR 76 mL/min (>60)
== END 2022-04-07 16:06 | disposition home or self-care (01) ==
LOC: JP.ED 13:38
DX: R09.02 Hypoxemia (principal); E87.70 Fluid overload, unspecified; I48.91 Unspecified atrial fibrillation; I11.0 Hypertensive heart disease with heart failure; I50.9 Heart failure, unspecified; J44.9 Chronic obstructive pulmonary disease, unspecified; F17.210 Nicotine dependence, cigarettes, uncomplicated; Z79.899 Other long term (current) drug therapy
CPT/HCPCS: 36415; 71045; 80053; 81001; 83880; 85025; 96374; 99282; 99285; J1940; J3490

== ENCOUNTER 2022-04-16 12:58 | Emergency (ER) | payer MEDICARE, OTHER ==
[2022-04-16] MEDS ORDERED: Potassium Chloride 20 MEQ Tab.ER PO ONE (15:08)
[2022-04-16] MEDS ORDERED: Ondansetron 4 MG Tab.DIS PO ONE (15:10)
[2022-04-16] MEDS ORDERED: Furosemide 20 MG/2 ML VIAL IVPUSH ONE (15:15)
== END 2022-04-16 16:38 | disposition home or self-care (01) ==
LOC: JP.ED 12:58
DX: U07.1 COVID-19 (principal); I11.0 Hypertensive heart disease with heart failure; I50.84 End stage heart failure; E87.79 Other fluid overload; Z79.899 Other long term (current) drug therapy
CPT/HCPCS: 36415; 71046; 74018; 80048; 83880; 84484; 85027; 96374; 99284; A9270; J1940; Q0162; U0002

== ENCOUNTER 2022-06-29 09:32 | Emergency (ER) | payer MEDICARE, OTHER ==
[2022-07-23 22:05] LABS: ESTIMATED GFR 90 mL/min (>60)
== END 2022-06-29 12:10 | disposition home or self-care (01) ==
LOC: JP.ED 09:32
DX: S41.111A Laceration without foreign body of right upper arm, initial encounter (principal); S41.112A Laceration without foreign body of left upper arm, initial encounter; R53.1 Weakness; J44.9 Chronic obstructive pulmonary disease, unspecified; R09.02 Hypoxemia; I10 Essential (primary) hypertension; W18.39XA Other fall on same level, initial encounter
CPT/HCPCS: 36415; 71046; 71046-26; 80053; 83880; 85025; 99285